=== PATIENT | female | born 1965 | race Caucasian/White ===

== ENCOUNTER → 2017-12-03 09:44 | Outpatient (CLI) | payer BC, SELFPAY ==
[2017-12-03 10:22] VITALS: BMI 21.8
--- NOTE | 2017-12-03 10:25 | CT_ITS ---
CT chest w con Ordering Physician: Aubrey Lugo MD Patient Age: 52 years: Female HISTORY: ITS.REASON: SUPRACLAVICULAR LYMPHADENOPATHY TECHNIQUE: Helical CT scanning performed the chest only 35 cc Isovue-370. Sagittal and coronal reconstructions on CT workstation. COMPARISON :No prior chest studies FINDINGS The lungs appear well expanded and clear with no active disease. No pneumothorax no pleural effusion no pneumonia... Scant, mild chronic apical pleural parenchymal scarring, . Small 3.5 mm mm partially calcified granuloma seen toward posterior right apex (axial slice 25 sagittal 23.). Not of concern . Small nonspecific nodular density axial slice 54, posterior RUL. This measures 4.2 mm maximally. Can be followed.. Aorta & great vessels satisfactory. There is some streak and motion artifact slightly degrades images through this region. Mediastinum. No mediastinal masses. I would note Upper normal density at the anterior mediastinum which is appearance of scant residual thymic tissue but this would be unusual for 52-year-old. It does not have masslike appearance to raise concern regarding pathological feature. Will benefit from 9-12 month follow-up along used to address the small lung nodule. A small 9 mm lymph node at AP window, just anterior to the left pulmonary artery Observed. Chest wall and T-spine unremarkable. Small Hiatal hernia incidentally moderate gas within the esophagus Small to moderate axillary lymph nodes. No supraclavicular adenopathy evident. Thyroid nodules noted: Right lobe thyroid slightly enlarged measuring ~5 cm length,. 8 mm nodule is seen inferior right lower lobe junction with isthmus.. Just superior to this is a 6 mm height nodule mid right lobe. Questionable 4 mm nodule question mid isthmus more anteriorly. Consider follow-up thyroid ultrasound Upper abdomen. Adrenals normal. ---IMPRESSION:-------- 1. A lungs clear with no active disease.. 2. Small nonspecific 4 mm nodule posterior RLL. Question scant low-density residual thymus at superior aspect anterior mediastinum.-this would be unusual for this age patient Consider follow-up CT chest 9-10 months. This I believe Would be adequate follow-up both of these above most likely benign-appearing features 3. No supraclavicular adenopathy or mass No significant appearing mediastinal adenopathy otherwise 4. Incidental thyroid nodules with slight Enlarged right lobe of thyroid. Consider thyroid ultrasound
[2017-12-03 10:47] LABS: Basophils # 0.1 K/mm3 (0-0.2); Basophils % 0.9 % (0.1-2.0); Eosinophils # 0.2 K/mm3 (0.0-0.4); Eosinophils % 2.5 % (0.1-12.0); Hematocrit 43.6 % (37.0-47.0); Hemoglobin 14.8 g/dL (12.2-16.2); Lymphocytes # 2.9 K/mm3 (0.7-4.5); Lymphocytes % 31.8 K/mm3 (10-50); Mean Corpuscular Hemoglobin 29.9 pg (27.0-31.2); Mean Corpuscular Volume 88.1 fl (81-99); Mean Platelet Volume 7.5 fl (7.4-10.4); Monocytes # 0.5 K/mm3 (0.1-1.0); Monocytes % 5.2 % (1.7-9.3); Neutrophils # 5.5 K/mm3 (1.8-7.8); Neutrophils % 59.6 % (37.0-80.0); Platelet Count 337 K/mm3 (142-424); Red Blood Count 4.95 M/mm3 (4.20-5.40); White Blood Count 9.2 K/mm3 (4.8-10.8)
[2017-12-03 11:14] LABS: Alanine Aminotransferase 21 U/L (12-78); Albumin Level 3.6 gm/dL (3.4-5.0); Albumin/Globulin Ratio 0.9 (1.1-1.8); Alkaline Phosphatase 140 U/L (46-116); Anion Gap 11.3 mEq/L (5-15); Aspartate Amino Transferase 13 U/L (15-37); Bilirubin,Total 0.3 mg/dL (0.2-1.0); Blood Urea Nitrogen 7 mg/dL (7-18); Carbon Dioxide 28 mmol/L (21.0-32.0); Chloride 107 mmol/L (98-107); Creatinine Clearance Estimated 99 mL/min (0-300); Creatinine,Serum 0.62 mg/dL (0.55-1.02); Estimated Glomerular Filt Rate 102 ml/min (>60); GFR (African American) 123 ML/MIN (>60); Globulin 4.2 gm/dl (1.3-3.2); Glucose 92 mg/dL (74-106); Potassium 4.3 mmoL/L (3.5-5.1); Sodium 142 mmol/L (136-145); Thyroid Stimulating Hormone 1.74 uIU/ml (0.358-3.740); Total Protein,Serum 7.8 gm/dL (6.4-8.2)
[2017-12-07 10:52] LABS: Vitamin B12 584 pg/mL (232-1245)
== END ==
PROVIDERS: Family Provider Internal Medicine; PCP Internal Medicine Adolescent Medicine; Visit Provider Internal Medicine Adolescent Medicine
DX: R59.0 Localized enlarged lymph nodes (principal)
CPT/HCPCS: 71260; 80053; 82607; 84443; 85025; Q9967

== ENCOUNTER → 2017-12-20 12:32 | Outpatient (CLI) | payer BC, SELFPAY ==
--- NOTE | 2017-12-20 12:37 | US_ITS ---
US thyroid HISTORY: ITS.REASON: THYROID NODULE ORDERING PHYSICIAN: Stacy Chatman PATIENT AGE: 52 years COMPARISON: None FINDINGS: Right lobe: The right lobe is 4.8 x 0.9 x 2.5 cm. 5 mm multilocular cystic lesion in the mid aspect of the right lobe. 4 mm cystic lesion in the mid aspect of the right lobe 4 mm additional cyst mid right lobe 9 mm hypoechoic nodule lower pole on the right. 7 x 7 mm hypoechoic locular lesion in the lower pole on the right corresponding to the abnormality noted on the CT scan Left lobe: 4.3 x 1.1 x 1.5 cm 3 mm hypoechoic nodules. Early. 3 mm hypoechoic nodule inferiorly. Isthmus: Mildly thickened at 4 mm. There is a 4 mm cystic nodule at the junction of the isthmus with the right lobe IMPRESSION: Mildly enlarged thyroid gland with multiple nodules most of which appear cystic. 7 mm hypoechoic nodule in the lower pole on the right corresponds to the CT abnormality. The nodule several low level of suspicion for malignancy. 6 month follow-up recommended.
== END ==
PROVIDERS: Family Provider Internal Medicine; PCP Nurse Practitioner Family; Visit Provider Nurse Practitioner Family
DX: E04.2 Nontoxic multinodular goiter (principal)
CPT/HCPCS: 76536

== ENCOUNTER → 2017-12-27 15:15 | Outpatient (CLI) | payer BC, SELFPAY ==
--- NOTE | 2017-12-27 15:20 | MM_ITS ---
MM Dig screening mamm BI w/CAD CAD Screening COMPARISON: Digital mammograms from [facility] 02/09/2014 and digital mammograms from [facility] 12/19/2011 . INDICATION: There is a history of breast cancer in patient's sister maternal aunt and maternal uncle all diagnosed in their 30s and 40s TECHNIQUE: Standard CC and MLO images were obtained. R2 CAD reviewed. FINDINGS: Prominent diffuse heterogenic fiber glandular densities are seen in both breasts definitely lessening the sensitivity of mammography. There is no suspicious lesion and there are no suspicious microcalcifications. IMPRESSION: Dense parenchymal pattern with no suspicious lesion seen BI-RADS Category: 1 Negative RECOMMENDED FOLLOW-UP: 1YR - 1 YEAR FOLLOW-UP (A letter has been sent to the patient regarding results of the study.)
--- NOTE | 2017-12-27 15:20 | US_ITS ---
US extremity RT limited CLINICAL INDICATION: ITS.REASON: enlarged lymph node ORDERING PHYSICIAN: Yash Rodriguez MD PATIENT AGE: 52 years COMPARISON: None FINDINGS: Ultrasound is performed of the right axilla. There are small lymph nodes present measuring up to 1.5 cm x 0.7 cm. Heterogeneous echogenicity having a lace like pattern is present in the right axilla measuring 5 cm and may be due to a lipoma. No abnormal fluid collection or other significant anomalies evident IMPRESSION: Probable lipoma right axilla with small lymph nodes
--- NOTE | 2017-12-27 15:20 | US_ITS ---
US extremity LT limited CLINICAL INDICATION: Swelling in the left axilla ITS.REASON: enlarged lymph node ORDERING PHYSICIAN: Yash Rodriguez MD PATIENT AGE: 52 years COMPARISON: None FINDINGS: Ultrasound performed of the left axilla showed small nodes measuring up to 2 x 1 cm. And oval area of lace like decreased echogenicity noted in the axillary region measuring 4.6 x 2 cm and may be due to a lipoma. No fluid collections evident. IMPRESSION: Small left axillary lymph nodes with possible lipoma
== END ==
PROVIDERS: Family Provider Internal Medicine; PCP Nurse Practitioner Family; Visit Provider Surgery
DX: R59.1 Generalized enlarged lymph nodes (principal)
CPT/HCPCS: 76882; 77067

== ENCOUNTER → 2018-10-22 15:03 | Outpatient (CLI) | payer OTHER, SELFPAY ==
--- NOTE | 2018-10-22 15:08 | US_ITS ---
US thyroid HISTORY: Thyroid nodules, feels like something is stuck in the throat ITS.REASON: THYROID NODULE ORDERING PHYSICIAN: Jd Resendez MD PATIENT AGE: 53 years Comparison: 12/20/2017 FINDINGS: Right lobe: 4.6 x 1.5 x 1.6 cm Nodule A: 5 mm hypoechoic nodule with pole laterally unchanged Nodule B: 3 mm cystic lesion mid polar region unchanged. Small central hyperechoic focus Nodule C: 4 mm cystic nodule mid polar region unchanged. Small central hyperechoic focus Nodule D: 4 mm cystic nodule lower pole with small hyperechoic focus peripherally Left lobe: 4.3 x 1.1 x 1.4 cm Nodule A: 2 mm cystic nodule upper pole unchanged Nodule B: 3 mm hypoechoic nodule lower pole unchanged Isthmus: 5 mm hypoechoic nodule lateral isthmus unchanged IMPRESSION: Bilateral stable thyroid nodules with low level of suspicion for malignancy. Overall no significant change
== END ==
PROVIDERS: PCP Internal Medicine Adolescent Medicine; Visit Provider Internal Medicine Adolescent Medicine
DX: E04.1 Nontoxic single thyroid nodule (principal)
CPT/HCPCS: 76536

== ENCOUNTER → 2019-08-25 08:05 | Outpatient (CLI) | payer BC, SELFPAY ==
[2019-08-25 08:50] LABS: Basophils # 0.1 K/mm3 (0-0.2); Basophils % 0.8 % (0.1-2.0); Eosinophils # 0.2 K/mm3 (0.0-0.4); Eosinophils % 2.6 % (0.1-12.0); Hemoglobin 15.3 g/dL (12.2-16.2); Lymphocytes # 2.6 K/mm3 (0.7-4.5); Mean Corpuscular HGB Conc 33.3 g/dL (31.8-35.4); Mean Corpuscular Hemoglobin 29.8 pg (27.0-31.2); Mean Corpuscular Volume 89.5 fl (81-99); Monocytes # 0.5 K/mm3 (0.1-1.0); Monocytes % 5.5 % (1.7-9.3); Neutrophils # 5.2 K/mm3 (1.8-7.8); Platelet Count 312 K/mm3 (142-424); Red Blood Count 5.14 M/mm3 (4.20-5.40); White Blood Count 8.5 K/mm3 (4.8-10.8)
[2019-08-25 10:03] LABS: Alanine Aminotransferase 18 U/L (12-78); Albumin Level 3.8 gm/dL (3.4-5.0); Albumin/Globulin Ratio 1.2 (1.1-1.8); Alkaline Phosphatase 127 U/L (46-116); Anion Gap 14.4 mEq/L (5-15); Aspartate Amino Transferase 14 U/L (15-37); Bilirubin,Total 0.4 mg/dL (0.2-1.0); Blood Urea Nitrogen 12 mg/dL (7-18); C-Reactive Protein < 0.2 mg/dL (0.0-0.9); Calcium 9.2 mg/dL (8.5-10.1); Carbon Dioxide 28 mmol/L (21.0-32.0); Chloride 104 mmol/L (98-107); Chol/HDL Ratio 9.5 (1-3.5); Cholesterol 237 mg/dL (140-200); Estimated Glomerular Filt Rate 88 ml/min (>60); GFR (African American) 106 ML/MIN (>60); Globulin 3.3 gm/dl (1.3-3.2); Glucose 91 mg/dL (74-106); HDL Cholesterol 25 mg/dL (29-89); LDL Cholesterol 138 mg/dL (0-130); Potassium 4.4 mmoL/L (3.5-5.1); Sodium 142 mmol/L (136-145); Thyroid Stimulating Hormone 1.81 uIU/ml (0.358-3.740); Total Protein,Serum 7.1 gm/dL (6.4-8.2); Triglycerides 372 mg/dL (30-200); Uric Acid 2.9 mg/dL (2.6-7.2); VLDL Cholesterol 74 mg/dL (0-40)
[2019-08-25 10:09] LABS: Erythrocyte Sedimentation Rate 11 mm/hr (0-30)
[2019-08-26 08:13] LABS: RA Latex Turbid. <10.0 IU/mL (0.0-13.9)
[2019-08-27 08:20] LABS: Hepatitis C Antibody 0.1 s/co ratio (0.0-0.9)
[2019-08-27 08:21] LABS: Anti-Cyclic Citrullinated Pept 16 units (0-19); Vitamin D 25 Hydroxy 23.5 ng/mL (30.0-100.0)
== END ==
PROVIDERS: Visit Provider Nurse Practitioner Family
DX: M25.50 Pain in unspecified joint (principal); E55.9 Vitamin D deficiency, unspecified; E78.2 Mixed hyperlipidemia; E04.1 Nontoxic single thyroid nodule; Z72.0 Tobacco use
CPT/HCPCS: 36415; 80053; 80061; 82652; 84443; 84550; 85025; 85651; 86140; 86200; 86431; 87380

== ENCOUNTER → 2019-09-04 07:43 | Outpatient (CLI) | payer BC, SELFPAY ==
--- NOTE | 2019-09-04 07:50 | US_ITS ---
PROCEDURE: US THYROID CLINICAL INDICATION: THYROID NODULE Follow-up thyroid nodules COMPARISON: THY US thyroid from 10/22/2018 FINDINGS: Right lobe: The right lobe measures 4.6 x 1.4 x 1.6 cm. Multiple cystic nodules are present on the right and are unchanged with low level of suspicion for malignancy. No suspicious solid nodules are demonstrated on today's exam. Left lobe: 4.3 x 1.6 x 1.1 cm. No change in the hypoechoic nodule measuring 4 mm in the lower pole and a small cystic lesion in the upper pole at 2 mm. Isthmus: 5 mm hypoechoic nodule lateral aspect of the isthmus on the right unchanged Additional findings: IMPRESSION: Stable ultrasound appearance of the thyroid gland. Stable small bilateral nodules with low level of suspicion for malignancy Dictated by: Colin Foster MD 09/04/2019 15:32 Electronically signed by Colin Foster MD in [place] 09/04/2019 15:32
--- NOTE | 2019-09-04 07:50 | MM_ITS ---
PROCEDURE: MM DIG SCREENING MAMM BI W/CAD Patient Age:54Y CLINICAL INDICATION: SCREENING period. Fragments 6 months ago. No new complaints. Family history: Sister with breast cancer age 32 Maternal aunt breast cancer age 38. Maternal uncle age 40 COMPARISON: DIGMAMMS MAMMOGRAM SCREEN-PORCELAIN ENAMELER N/C from 09/20/2005 [facility] DIGITAL MAMM-SCREEN BILATERAL from 12/19/2011 DIG MAMMO BILAT SCREENING from 02/09/2014 [facility] MM Dig screening mamm BI w/CAD from 12/27/2017 TECHNIQUE: The standard CC and MLO images were obtained. R2 CAD reviewed. Additional axillary CC views bilateral. FINDINGS: Moderate breast density bilaterally with fibroglandular elements most evident at the retroareolar region extending towards upper-outer quadrant bilaterally, similar to previous pattern but no suspicious calcifications the right mammogram Focal density at the superior right breast on today's MLO view of is noted but most likely a reflect summation shadow as it seems to dissipate on the CC views-however with this appearance I would suggest spot MLO and CC view along with a full 90 degree view right breast. Ultrasound right breast thereafter Left breast: Stable appearance with no significant new findings. IMPRESSION: Right breast: Suggest additional views and ultrasound right breast A focal area of density on today's MLO view is most likely merely summation shadow-but to be cautious, and in view of the positive family history, I would suggest patient return for spot views and ultrasound right breast to further evaluate Left mammogram. No significant change; left mammogram follow-up in 1 year BI-RAD Category: 0 Need Additional Imaging Evaluation FOLLOW-UP: IMM Immediate Follow-up Recommended (A letter has been sent to the patient regarding results of the study.) Dictated by: Laci Isabel MD 09/06/2019 11:08 Electronically signed by Laci Isabel MD in [place] 09/06/2019 11:08
== END ==
PROVIDERS: PCP Internal Medicine Adolescent Medicine; Visit Provider Nurse Practitioner Family
DX: Z12.31 Encounter for screening mammogram for malignant neoplasm of breast (principal); E04.1 Nontoxic single thyroid nodule
CPT/HCPCS: 76536; 77067

== ENCOUNTER → 2019-10-20 12:48 | Outpatient (CLI) | payer BC, SELFPAY ==
--- NOTE | 2019-10-20 12:53 | MM_ITS ---
PROCEDURE: MM DIG MAMM DX UNILAT RT CAD CLINICAL INDICATION: ABNORMAL MAMM Follow-up abnormal screening exam COMPARISON: DIGMAMMS MAMMOGRAM SCREEN-AGRICULTURAL LABOR CAMP MANAGER N/C from 09/20/2005 [facility] DIGITAL MAMM-SCREEN BILATERAL from 12/19/2011 DIG MAMMO BILAT SCREENING from 02/09/2014 [facility] MM Dig screening mamm BI w/CAD from 12/27/2017 MM DIG SCREENING MAMM BI W/CAD from 09/04/2019 US BREAST RT COMPLETE from 10/20/2019 TECHNIQUE: Problem solving views are performed along with right breast ultrasound. FINDINGS: There is average fibroglandular tissue. The area of asymmetric density in the superior aspect of the right breast appears to compress out on the focal spot compression view. No correlate evident on the orthogonal images. Right breast ultrasound: There is a 4 mm cyst at 1 o'clock near the nipple. At 10 o'clock there is a 5 mm hypoechoic nodule which may be due to a cyst containing some low level echoes which could be due to internal debris or reverberation artifact. This may the correspond to the mammographic abnormality. A 5 mm cyst is present in the retroareolar region. No malignant appearing nodules evident. IMPRESSION: Probably benign findings. The area of asymmetry may correspond to either asymmetric fibroglandular tissue or small complex cyst. Recommend six-month mammographic and sonographic follow-up BI-RAD Category: 3 Probably Benign Finding Short Term Follow-up FOLLOW-UP: 6M 6Month Follow-up (A letter has been sent to the patient regarding results of the study.) Dictated by: Colin Foster MD 10/23/2019 11:47 Electronically signed by Colin Foster MD in [place] 10/23/2019 11:47
== END ==
PROVIDERS: PCP Internal Medicine Adolescent Medicine; Visit Provider Nurse Practitioner Family
DX: R92.8 Other abnormal and inconclusive findings on diagnostic imaging of breast (principal)
CPT/HCPCS: 76641; 77065

== ENCOUNTER → 2020-07-30 15:41 | Outpatient (CLI) | payer BC, SELFPAY | PROVIDERS: PCP Internal Medicine Adolescent Medicine; Visit Provider Nurse Practitioner Family | DX: R00.2 Palpitations (principal) | CPT/HCPCS: 93225; 93226 ==

== ENCOUNTER → 2020-08-27 12:47 | Outpatient (CLI) | payer BC, SELFPAY ==
--- NOTE | 2020-08-27 | CA_ITS ---
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 Philip, RT(R) Ht: 5 ft 4 in Wt: 130lbs BSA: 1.63 BP: 160/90 mmHg Indications: CP, MVP, palpitations, smoker, murmur, family history of HD 2D Dimensions LVOT 1.54 cm (M/F) 1.5-2.5 M-Mode Dimensions RVDd 1.88 cm (0.9-2.6) LA Diam 2.65 cm (1.9-4.0) LVDd 4.52 cm (3.5-5.7) Ao Diam 3.03 cm (2.0-3.7) LVDs 3.22 cm (3.5-5.7) IVSd 0.61 cm (0.6-1.1) PWd 0.55 cm (0.6-1.1) EF (Teich) 55.50% FS 28.80% EDV (Teich) 93.40 mL ESV (Teich) 41.60 mL LV Diastology E Decel Time 150.00 (160-240 msec) E/A Ratio 1.0 MED E' 9.70 (< 7 cm/sec) E'/MED E' Ratio 11.84 (>14) LAT E' 10.80 (<10 cm/sec) E/LAT E' Ratio 10.63 (>14) Mitral Valve MV E Max Jeremías. 115.00 (40-130 cm/s) MV A Velocity 110.00 (40-130 cm/s) E/A Ratio 1.04 MV Decel. Time 150.00 (160-240 ms) MV PHT 44.00 ms Left Ventricle Left atrium is normal size, left ventricle is normal size, there is no concentric left ventricular hypertrophy, visually estimated ejection fraction 55% with no regional wall motion abnormality, diastolic parameters are within normal range. Right Ventricle Right atrium and right ventricle are normal size and contractility. Aortic Valve Aortic valve is minimally thickened and fibrosed, there is no aortic stenosis or aortic insufficiency. Mitral Valve Mitral valve leaflets are minimally thickened, there is no obvious mitral valve prolapse, there is mild mitral regurgitation. Tricuspid Valve Tricuspid valve is grossly normal, there is mild tricuspid regurgitation, tricuspid regurgitation jet velocity is inadequate for calculation of the right ventricular systolic pressure. Pulmonic Valve Pulmonic valve is poorly visualized. Great Vessels Aortic root is normal size. Pericardium No significant pericardial effusion noted. Conclusion 1. Normal left ventricular size, preserved left ventricular systolic function, visually estimated ejection fraction 55% with no regional wall motion abnormality, diastolic parameters are within normal range. 2. No obvious mitral valve prolapse seen. 3. Mild mitral and tricuspid regurgitation. 4. No significant pericardial effusion noted. Electronically signed by : Ean Franklin, 08/30/2020 19:10:22
== END ==
PROVIDERS: PCP Internal Medicine Adolescent Medicine; Visit Provider Nurse Practitioner Family
DX: I34.1 Nonrheumatic mitral (valve) prolapse (principal)
CPT/HCPCS: 93306

== ENCOUNTER 2020-09-03 23:29 | Emergency (ER) | payer BC, SELFPAY ==
[2020-09-03 23:41] VITALS: BP 117/85; PULSE 95; RESP 18; TEMP 36.7; O2SAT 99; BMI 22.3
[2020-09-03 23:58] LABS: Microscopic, Urine URINE MICROSCOPIC (MICROSCOPIC)
[2020-09-04 00:05] LABS: Appearance,Urine CLEAR (Clear); Bilirubin,Urine Negative (Negative); Blood, Urine 1+ (Negative); Color,Urine YELLOW (Yellow); Glucose,Urine (UA) Negative (Negative); Ketones,Urine Negative (Negative); Leukocyte Esterase,Urine Negative (Negative); Nitrate,Urine Negative (Negative); Protein,Urine Negative (Negative); Specific Gravity, Urine 1.025 (1.005-1.030); Urobilinogen,Urine 0.2 EU/dl (0.2)
[2020-09-04 00:06] LABS: Squamous Epithelial Cell,Urine Occasional #/hpf (0-5)
[2020-09-04 00:15] LABS: Basophils # 0.1 K/mm3 (0-0.2); Basophils % 1.1 % (0.1-2.0); Eosinophils # 0.4 K/mm3 (0.0-0.4); Eosinophils % 3.6 % (0.1-12.0); Hematocrit 45.9 % (37.0-47.0); Hemoglobin 15.6 g/dL (12.2-16.2); Lymphocytes # 3.9 K/mm3 (0.7-4.5); Lymphocytes % 35.7 % (10-50); Mean Corpuscular HGB Conc 34.1 g/dL (31.8-35.4); Mean Corpuscular Volume 88.2 fl (81-99); Mean Platelet Volume 7.5 fl (7.4-10.4); Monocytes # 0.7 K/mm3 (0.1-1.0); Monocytes % 6.4 % (1.7-9.3); Neutrophils # 5.8 K/mm3 (1.8-7.8); Neutrophils % 53.2 % (37.0-80.0); Platelet Count 317 K/mm3 (142-424); Red Cell Distribution Width 13.9 % (11.5-17.5); White Blood Count 10.9 K/mm3 (4.8-10.8)
[2020-09-04 00:21] VITALS: BP 131/86; PULSE 78; RESP 18; O2SAT 100
[2020-09-04 00:24] LABS: Alanine Aminotransferase 16 U/L (12-78); Albumin Level 4.2 g/dl (3.5-5.0); Albumin/Globulin Ratio 1.4 (1.1-1.8); Alkaline Phosphatase 158 U/L (38-126); Amylase 64 U/L (30-110); Anion Gap 11.7 mEq/L (5-15); Aspartate Amino Transferase 29 U/L (14-36); Bilirubin,Total 0.5 mg/dl (0.2-1.3); Blood Urea Nitrogen 11 mg/dl (7-17); Calcium 9.4 mg/dl (8.4-10.2); Carbon Dioxide 26 mmol/L (22.0-30.0); Chloride 106 mmol/L (98-107); Creatinine Clearance Estimated 87 mL/min (50-200); Estimated Glomerular Filt Rate 88 ml/min (>60); GFR (African American) 106 ML/MIN (>60); Globulin 3.1 g/dL (1.3-3.2); Glucose 108 mg/dl (74-100); Lipase 183 U/L (23-300); Potassium 3.7 mmoL/L (3.5-5.1); Sodium 140 mmol/L (136-145); Total Protein,Serum 7.3 g/dl (6.3-8.2)
[2020-09-04 00:25] LABS: Lactic Acid 1.2 mmol/L (0.7-2.1)
--- NOTE | 2020-09-04 00:26 | PC.NURSE ---
Pt finished oral contrast
--- NOTE | 2020-09-04 00:36 | HMH.EDNVD ---
ED Disposition Clinical Impression: Renal colic on left side Disposition: Home, Self-Care Condition on Discharge: Good Instructions: DI for Kidney Stones Additional Instructions: fluids and see pcp and urology Prescriptions: Tamsulosin HCl [Flomax 0.4mg capsule] 0.4 mg PO HS #10 cap Transmission Status: Pending to [facility]/pharmacy #[id number] Referrals: Aubrey Lugo MD [Primary Care Provider] - - Critical Care Critical Care Time: No Attestation: On 09/03/20, the high probability of a clinically significant, sudden or life threatening deterioration of the following system(s) required my full and direct attention, intervention and personal management. The time I documented below is in addition to time spent performing reported procedures but includes the following listed in this critical care notation. Medical Decision Making - Medical Records Medical records reviewed: Yes: I reviewed the patient's medical records. - Teto Inquiry Pt receiving controlled substance: No Vital Signs: 09/03/20 23:41 09/04/20 00:21 Temperature 98.1 F Temperature Source Oral Pulse Rate [Right] 95 H 78 Respiratory Rate 18 18 Blood Pressure [Right Arm] 117/85 131/86 Blood Pressure Mean [Right Arm] 95 101 Blood Pressure Source [Right Arm] Automatic Cuff Blood Pressure Position [Right Arm] Supine 02 Sat by Pulse Oximetry 99 100 Oxygen Delivery Method Room Air Room Air - Lab Data Lab results reviewed: Yes: I reviewed the patient's lab results. Lab Results 09/03/20 23:50: Urine Color Yellow, Urine Appearance Clear, Urine pH 6.0, Ur Specific Ovando 1.025, Urine Protein Negative, Urine Glucose (UA) Negative, Urine Ketones Negative, Urine Blood 1+, Urine Nitrate Negative, Urine Bilirubin Negative, Urine Urobilinogen 0.2, Ur Leukocyte Esterase Negative, Urine RBC 5-10, Ur Squamous Epith Cells Occasional 09/04/20 00:06: WBC 10.9 H, RBC 5.20, Hgb 15.6, Hct 45.9, MCV 88.2, MCH 30.0, MCHC 34.1, RDW 13.9, Plt Count 317, MPV 7.5, Neut % (Auto) 53.2, Lymph % (Auto) 35.7, Zapata % (Auto) 6.4, Eos % (Auto) 3.6, Baso % (Auto) 1.1, Neut # (Auto) 5.8, Lymph # (Auto) 3.9, Zapata # (Auto) 0.7, Eos # (Auto) 0.4, Baso # (Auto) 0.1, ESR 16 09/04/20 00:06: Sodium 140, Potassium 3.7, Chloride 106, Carbon Dioxide 26, Anion Gap 11.7, BUN 11, Creatinine 0.70, Estimated Creat Clear 87, Estimated GFR 88, Est GFR ( Amer) 106, Glucose 108 H, Calcium 9.4, Total Bilirubin 0.5, AST 29, ALT 16, Alkaline Phosphatase 158 H, C-Reactive Protein 2.0, Total Protein 7.3, Albumin 4.2, Globulin 3.1, Albumin/Globulin Ratio 1.4, Amylase 64, Lipase 183 09/04/20 00:06: Lactate 1.2 Result diagrams: 09/04/20 00:06 09/04/20 00:06 Orders (Tests/Meds): ED MEDICATIONS Generic Name Dose Route Start Last Admin Trade Name Freq PRN Reason Stop Dose Admin Sodium Chloride 1,000 mls @ 999 mls/hr 09/03/20 23:45 09/04/20 00:06 Sod Chlor 0.9% 1000ml Bag IV 09/04/20 00:45 999 mls/hr .Q1H1M TORSTEN Administration Discontinued Medications Generic Name Dose Route Start Last Admin Trade Name Freq PRN Reason Stop Dose Admin Diatrizoate Meglum/Diatrizoate Sod 30 ml 09/03/20 23:51 09/04/20 00:06 Diatrizoate Gemma 66% & Diatrizoate Na 10% 30ml Udc PO 09/03/20 23:52 30 ml ONCE ONE Administration Iopamidol 50 ml 09/04/20 02:10 09/04/20 02:11 Iopamidol-370 (76%); 50ml Vial IV 09/04/20 02:11 50 ml ONCE ONE Administration Iopamidol 25 ml 09/04/20 02:10 09/04/20 02:11 Iopamidol-370 (76%); 50ml Vial IV 09/04/20 02:11 25 ml ONCE ONE Administration Ketorolac Tromethamine 30 mg 09/03/20 23:51 09/04/20 00:06 Ketorolac 30mg/Ml Vial IV 09/03/20 23:52 30 mg ONCE ONE Administration Ondansetron HCl 4 mg 09/03/20 23:51 09/04/20 00:06 Ondansetron 4mg/2ml Vial IV 09/03/20 23:52 4 mg ONCE ONE Administration Sodium Chloride 10 ml 09/04/20 02:12 09/04/20 02:12 Sodium Chloride 0.9% 10ml Syr (Rad Only) IV 09/04/20 02:13 10 ml
[2020-09-04 00:38] LABS: Erythrocyte Sedimentation Rate 16 mm/hr (0-30)
--- NOTE | 2020-09-04 01:44 | CT_ITS ---
PROCEDURE: CT ABDOMEN PELVIS W CON CLINICAL INDICATION: LLQ pain Left lower quadrant pain COMPARISON: CT ABDPELW/O CT ABD PELVIS W/O CONTRAST from 06/09/2015 TECHNIQUE: IV Contrast: 75ML OPTIRAY 350 Oral Contrast None Axial images obtained with sagittal and coronal reformats. All CT scans at the facility use one or more dose reduction, viz: automated exposure control, ma/kV adjustment per patient size (including targeted exams where dose is matched to indication, i.e. head), or iterative reconstruction technique. FINDINGS: The liver, spleen, adrenal glands, pancreas, have an unremarkable appearance. There is a small hiatal hernia. There are punctate left renal calculi. There is a the 4 mm stone at the ureterovesical junction on the left with mild left-sided hydroureteronephrosis. Unremarkable appendix. No intestinal obstruction or free air. There are few colonic diverticula without evidence of diverticulitis. No acute bony findings. IMPRESSION: 1. 4 mm left ureterovesical junction stone with mild left hydroureteronephrosis. 2. Other nonacute findings as described above Dictated by: Colin Foster MD 09/04/2020 09:27 Colin Foster MD in [place] 09/04/2020 09:27
[2020-09-04 03:51] VITALS: BP 128/72; PULSE 76; RESP 16; TEMP 36.7; O2SAT 99
== END 2020-09-04 03:53 | disposition home or self-care (01) ==
PROVIDERS: Emergency Provider Emergency Medicine; PCP Internal Medicine Adolescent Medicine
DX: N23 Unspecified renal colic (principal); K21.9 Gastro-esophageal reflux disease without esophagitis; I10 Essential (primary) hypertension; F17.210 Nicotine dependence, cigarettes, uncomplicated
CPT/HCPCS: 74177; 80053; 81001; 82150; 83605; 83690; 85025; 85651; 86140; 87040; 96365; 96375; 99284; J2405; Q9967

== ENCOUNTER → 2020-10-19 09:27 | Outpatient (CLI) | payer BC, SELFPAY ==
--- NOTE | 2020-10-19 09:30 | US_ITS ---
PROCEDURE: US THYROID CLINICAL INDICATION: THYROID NODULE 1 year follow up nodules Nodules still seen COMPARISON: US US THYROID from 09/04/2019 FINDINGS: Right lobe: 1.0cm x 4.6cm x 1.7cm . Left lobe: 1.0cm x 4.1cm x 1.8cm Isthmus: 3 mm There are multiple benign-appearing cysts of the thyroid gland on both sides. These are not significantly changed. No suspicious nodules are evident IMPRESSION: Multiple bilateral thyroid cysts unchanged Dictated by: Colin Foster MD 10/20/2020 18:02 Colin Foster MD in [place] 10/20/2020 18:02
--- NOTE | 2020-10-19 09:30 | CT_ITS ---
PROCEDURE: CT CHEST W CON CLINCAL INDICATION: Lung nodule follow-up lung nodule COMPARISON: CT CHESTW CT chest w con from 12/03/[address] ABDOMEN PELVIS W CON from 09/04/2020 TECHNIQUE: IV Contrast: 75ml Isovue 370 Axial images obtained with sagittal and coronal reformats. All CT scans at the facility use one or more dose reduction, viz: automated exposure control, ma/kV adjustment per patient size (including targeted exams where dose is matched to indication, i.e. head), or iterative reconstruction technique. FINDINGS: HEART AND MEDIASTINAL STRUCTURES: Increased density within the anterior mediastinum which may be related to residual thymic tissue. LUNGS AND PLEURAL SPACES: There is a 4 mm noncalcified nodule in the superior segment of the right lower lobe which is unchanged. No new nodules are evident. BONY STRUCTURES: No acute bony abnormalities apparent. UPPER ABDOMEN: There is a small hiatal hernia. 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 ADDITIONAL FINDINGS: No other significant abnormalities. IMPRESSION: No change in the 4 mm noncalcified nodule in the superior segment of the right lower lobe. Small hiatal hernia. 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 angiogram of the abdomen may be of further value if clinically desired. Dictated by: Colin Foster MD 10/20/2020 13:59 Colin Foster MD in [place] 10/20/2020 13:59
--- NOTE | 2020-10-19 09:31 | MM_ITS ---
PROCEDURE: MM DIG SCREENING MAMM BI W/CAD Digital Breast Tomosynthesis Included CLINICAL INDICATION: SCREENING There is a history of breast cancer patient's sister diagnosed 32 maternal aunt COMPARISON: [facility] MM Dig screening mamm BI w/CAD from 12/27/2017 MG MM DIG SCREENING MAMM BI W/CAD from 09/04/2019 MG MM DIG MAMM DX UNILAT RT CAD from 10/20/2019 TECHNIQUE: Standard CC and MLO images and 3D Tomosynthesis was obtained. R2 CAD reviewed. FINDINGS: Diffuse fibroglandular densities are seen in both breast primarily upper outer quadrants. The findings are fairly symmetrical bilaterally. Is no suspicious lesion in either breast no suspicious microcalcifications. IMPRESSION: Moderate diffuse breast density with no suspicious lesions seen BI-RAD Category: 1 Negative FOLLOW-UP: 1YR 1 Year Follow-up (A letter has been sent to the patient regarding results of the study.) Dictated by: Dr. Gordy Kirkland MD 10/20/2020 14:20 Dr. Gordy Kirkland MD in [place] 10/20/2020 14:20
== END ==
PROVIDERS: PCP Internal Medicine Adolescent Medicine; Visit Provider Nurse Practitioner Family
DX: Z12.31 Encounter for screening mammogram for malignant neoplasm of breast (principal); R91.1 Solitary pulmonary nodule; E04.1 Nontoxic single thyroid nodule
CPT/HCPCS: 71260; 76536; 77063; 77067; Q9967

== ENCOUNTER 2020-11-03 14:00 | Outpatient (RCR) | payer BC, SELFPAY ==
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
== END 2020-11-22 14:19 | disposition home or self-care (01) ==
LOC: PT.CARL 14:00
PROVIDERS: Visit Provider Nurse Practitioner Family
DX: M54.32 Sciatica, left side (principal)
CPT/HCPCS: 97010; 97014; 97110; 97163; G0283

== ENCOUNTER → 2020-11-15 10:14 | Outpatient (CLI) | payer BC, SELFPAY ==
--- NOTE | 2020-11-15 10:19 | CT_ITS ---
Procedure: CT ANGIO ABDOMEN CLINICAL HISTORY: Celiac artery stenosis, abdominal pain COMPARISON: CT CT ABDOMEN PELVIS W CON from 09/04/2020 TECHNIQUE: IV Contrast: 100ml Isovue 370 Axial images obtained with sagittal and coronal reformats. All CT scans at the facility use one or more dose reduction, viz: automated exposure control, ma/kV adjustment per patient size (including targeted exams where dose is matched to indication, i.e. head), or iterative reconstruction technique. FINDINGS: A 4 mm noncalcified nodules present in the right lower lobe medially. This area was not previously imaged. There is a small hiatal hernia. The liver, spleen, adrenal glands, pancreas, have an unremarkable appearance. Punctate nonobstructing stones are present in the left kidney. No hydronephrosis. No intestinal obstruction or free air. Unremarkable appendix. CTA: There are mild atheromatous changes of the abdominal aorta. No aneurysm or occlusive change evident. There is high-grade stenosis involving the ostium of the celiac artery of with poststenotic dilatation. Approximately 66 percent stenosis involves the ostium of the celiac artery. The SMA has an unremarkable appearance. The AWILDA is patent. No evidence of renal artery stenosis. The iliac arteries show no evidence of aneurysm or significant stenosis. 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 Nonobstructing left renal calculi. Indeterminate 4 mm noncalcified nodule right lower lobe. Consider six-month follow-up to confirm short term stability. Dictated by: Colin Foster MD 11/16/2020 14:45 Colin Foster MD in [facility] 11/16/2020 14:45
== END ==
PROVIDERS: PCP Internal Medicine Adolescent Medicine; Visit Provider Nurse Practitioner Family
DX: I77.4 Celiac artery compression syndrome (principal)
CPT/HCPCS: 74175; Q9967

== ENCOUNTER → 2021-03-10 07:42 | Outpatient (CLI) | payer BC, SELFPAY ==
--- NOTE | 2021-03-10 07:47 | US_ITS ---
PROCEDURE: US ABDOMEN LIMITED CLINICAL INDICATION: UPPER ABD PAIN COMPARISON: No exams were available for comparison FINDINGS: PANCREAS: Unremarkable. No obvious mass or abnormal fluid collection. No ductal dilatation LIVER: No focal liver lesions demonstrated. Homogeneous echogenicity. No intrahepatic biliary ductal dilatation evident. There is appropriate direction of blood flow within a non dilated portal vein RIGHT KIDNEY: Cortical thinning. No hydronephrosis. GALLBLADDER: No gallstones, gallbladder wall thickening, pericholecystic fluid, or biliary dilatation. Atheromatous changes are present within the aorta. The spleen has an unremarkable appearance. There is some cortical scarring of both kidneys. IMPRESSION: No acute finding. Mild cortical thinning/scarring of the kidneys and atheromatous changes of the aorta. Dictated by: Colin Foster MD 03/10/2021 17:00 Colin Foster MD in [facility] 03/10/2021 17:00
== END ==
PROVIDERS: PCP Internal Medicine Adolescent Medicine; Visit Provider Internal Medicine Adolescent Medicine
DX: R10.10 Upper abdominal pain, unspecified (principal)
CPT/HCPCS: 76705

== ENCOUNTER → 2021-09-16 18:05 | Outpatient (CLI) | payer BC, SELFPAY ==
[2021-09-16 18:57] LABS: Basophils # 0.1 K/mm3 (0-0.2); Basophils % 1.4 % (0.1-2.0); Eosinophils # 0.2 K/mm3 (0.0-0.4); Eosinophils % 2.6 % (0.1-12.0); Hemoglobin 15.1 g/dL (12.2-16.2); Lymphocytes # 2.5 K/mm3 (0.7-4.5); Lymphocytes % 29.2 % (10-50); Mean Corpuscular HGB Conc 33.6 g/dL (31.8-35.4); Mean Corpuscular Hemoglobin 30.2 pg (27.0-31.2); Mean Corpuscular Volume 89.9 fl (81-99); Mean Platelet Volume 9.2 fl (7.4-10.4); Monocytes # 0.5 K/mm3 (0.1-1.0); Monocytes % 5.6 % (1.7-9.3); Neutrophils # 5.3 K/mm3 (1.8-7.8); Neutrophils % 61.1 % (37.0-80.0); Platelet Count 313 K/mm3 (142-424); Red Blood Count 5.01 M/mm3 (4.20-5.40); Red Cell Distribution Width 13.7 % (11.5-17.5); White Blood Count 8.6 K/mm3 (4.8-10.8)
[2021-09-16 20:10] LABS: Alanine Aminotransferase 13 U/L (12-78); Albumin Level 4.2 g/dl (3.5-5.0); Albumin/Globulin Ratio 1.6 (1.1-1.8); Alkaline Phosphatase 117 U/L (38-126); Anion Gap 6.5 mEq/L (5-15); Aspartate Amino Transferase 31 U/L (14-36); Bilirubin,Total 0.9 mg/dl (0.2-1.3); Blood Urea Nitrogen 7 mg/dl (7-17); Calcium 9.4 mg/dl (8.4-10.2); Carbon Dioxide 31 mmol/L (22.0-30.0); Chloride 106 mmol/L (98-107); Estimated Glomerular Filt Rate 129 ml/min (>60); GFR (African American) 156 ML/MIN (>60); Globulin 2.7 g/dL (1.3-3.2); Glucose 96 mg/dl (74-100); Potassium 4.5 mmoL/L (3.5-5.1); Sodium 139 mmol/L (136-145); Total Protein,Serum 6.9 g/dl (6.3-8.2)
[2021-09-16 20:42] LABS: Thyroid Stimulating Hormone 0.88 uIU/mL (0.465-4.68)
[2021-09-16 21:15] LABS: Vitamin B12 382 pg/mL (239-931)
[2021-09-16 21:58] LABS: 25-OH Vitamin D, Total 50.1 ng/mL (30-100)
== END ==
PROVIDERS: Visit Provider Nurse Practitioner Family
DX: R00.2 Palpitations (principal); R53.83 Other fatigue
CPT/HCPCS: 80053; 82306; 82607; 83735; 84443; 85025

== ENCOUNTER 2022-02-01 13:50 | Emergency (ER) | payer BC, SELFPAY ==
[2022-02-01] VITALS (7 sets, daily range): BP systolic 106–132; BP diastolic 58–75; PULSE 61–82; RESP 16–28; TEMP 36.8; O2SAT 95–99; BMI 20.9
[2022-02-01 14:16] LABS: Microscopic, Urine URINE MICROSCOPIC (MICROSCOPIC)
[2022-02-01 14:19] LABS: Appearance,Urine CLEAR (Clear); Bilirubin,Urine Negative (Negative); Blood, Urine Negative (Negative); Color,Urine YELLOW (Yellow); Glucose,Urine (UA) Negative (Negative); Ketones,Urine Negative (Negative); Leukocyte Esterase,Urine Negative (Negative); Nitrate,Urine Negative (Negative); Protein,Urine Negative (Negative); Specific Gravity, Urine 1.025 (1.005-1.030); Urobilinogen,Urine 0.2 EU/dl (0.2)
[2022-02-01 14:21] LABS: Basophils # 0.1 K/mm3 (0-0.2); Basophils % 1.5 % (0.1-2.0); Eosinophils # 0.2 K/mm3 (0.0-0.4); Eosinophils % 2.1 % (0.1-12.0); Hematocrit 44.8 % (37.0-47.0); Hemoglobin 15.3 g/dL (12.2-16.2); Lymphocytes # 2.2 K/mm3 (0.7-4.5); Lymphocytes % 22.5 % (10-50); Mean Corpuscular HGB Conc 34.1 g/dL (31.8-35.4); Mean Corpuscular Hemoglobin 30.7 pg (27.0-31.2); Mean Corpuscular Volume 89.9 fl (81-99); Mean Platelet Volume 8.7 fl (7.4-10.4); Monocytes # 0.5 K/mm3 (0.1-1.0); Monocytes % 4.8 % (1.7-9.3); Neutrophils # 6.8 K/mm3 (1.8-7.8); Neutrophils % 69.2 % (37.0-80.0); Platelet Count 320 K/mm3 (142-424); Red Blood Count 4.99 M/mm3 (4.20-5.40); Red Cell Distribution Width 13.8 % (11.5-17.5); White Blood Count 9.9 K/mm3 (4.8-10.8)
[2022-02-01 14:27] LABS: Chloride 107 mmol/L (98-107); Sodium 140 mmol/L (136-145); WBC,Urine Occasional #/hpf (0-3)
[2022-02-01 14:28] LABS: Bacteria,Urine Trace /lpf; Mucus,Urine 1+ /lpf; Squamous Epithelial Cell,Urine Occasional #/hpf (0-5)
[2022-02-01 14:29] LABS: Amylase 66 U/L (30-110)
[2022-02-01 14:30] LABS: Alanine Aminotransferase 19 U/L (12-78); Albumin Level 4.4 g/dl (3.5-5.0); Albumin/Globulin Ratio 1.5 (1.1-1.8); Alkaline Phosphatase 118 U/L (38-126); Aspartate Amino Transferase 29 U/L (14-36); Bilirubin,Total 0.8 mg/dl (0.2-1.3); Blood Urea Nitrogen 8 mg/dl (7-17); Calcium 8.5 mg/dl (8.4-10.2); Carbon Dioxide 28 mmol/L (22.0-30.0); Creatinine Clearance Estimated 86 mL/min (50-200); Estimated Glomerular Filt Rate 87 ml/min (>60); GFR (African American) 106 ML/MIN (>60); Globulin 2.9 g/dL (1.3-3.2); Glucose 117 mg/dl (74-100); Lipase 138 U/L (23-300); Total Protein,Serum 7.3 g/dl (6.3-8.2)
--- NOTE | 2022-02-01 14:49 | HMH.EDGENADL ---
ED Disposition Clinical Impression: Left upper quadrant abdominal pain Disposition: Home, Self-Care Condition on Discharge: Good Instructions: DI for Abdominal Pain-Adult Additional Instructions: Tylenol or ibuprofen for abdominal pain. Additional instructions for ABDOMINAL PAIN: See your physician as soon as possible for further evaluation. Return immediately if worsening abdominal pain, vomiting, shortness of breath, fever, vomiting of blood or abdominal distention. Referrals: Aubrey Lugo MD [Primary Care Provider] - - Critical Care Critical Care Time: No Attestation: On 02/01/22, the high probability of a clinically significant, sudden or life threatening deterioration of the following system(s) required my full and direct attention, intervention and personal management. The time I documented below is in addition to time spent performing reported procedures but includes the following listed in this critical care notation. Medical Decision Making - Teto Inquiry Pt receiving controlled substance: No Vital Signs: 02/01/22 13:50 02/01/22 15:12 02/01/22 15:30 Temperature 98.3 F Temperature Source Oral Pulse Rate 65 73 Pulse Rate [Right] 82 Respiratory Rate 16 20 Blood Pressure 107/58 L 115/75 Blood Pressure [Right Arm] 132/70 Blood Pressure Mean 73 86 Blood Pressure Mean [Right Arm] 90 Blood Pressure Source Blood Pressure Source [Right Arm] Automatic Cuff Blood Pressure Position Blood Pressure Position [Right Arm] Sitting 02 Sat by Pulse Oximetry 98 98 98 Oxygen Delivery Method Room Air Room Air 02/01/22 16:00 02/01/22 16:30 02/01/22 16:59 Temperature Temperature Source Pulse Rate 73 72 61 Pulse Rate [Right] Respiratory Rate 20 28 H Blood Pressure 114/67 109/66 L 106/66 L Blood Pressure [Right Arm] Blood Pressure Mean 87 84 Blood Pressure Mean [Right Arm] Blood Pressure Source Automatic Cuff Blood Pressure Source [Right Arm] Blood Pressure Position Sitting Blood Pressure Position [Right Arm] 02 Sat by Pulse Oximetry 99 99 95 Oxygen Delivery Method Room Air 02/01/22 19:23 Temperature 98.3 F Temperature Source Oral Pulse Rate 70 Pulse Rate [Right] Respiratory Rate 16 Blood Pressure 111/74 Blood Pressure [Right Arm] Blood Pressure Mean Blood Pressure Mean [Right Arm] Blood Pressure Source Automatic Cuff Blood Pressure Source [Right Arm] Blood Pressure Position Sitting Blood Pressure Position [Right Arm] 02 Sat by Pulse Oximetry Oxygen Delivery Method Room Air - Lab Data Lab Results 02/01/22 14:09: Urine Color Yellow, Urine Appearance Clear, Urine pH 6.0, Ur Specific [place] 1.025, Urine Protein Negative, Urine Glucose (UA) Negative, Urine Ketones Negative, Urine Blood Negative, Urine Nitrate Negative, Urine Bilirubin Negative, Urine Urobilinogen 0.2, Ur Leukocyte Esterase Negative, Urine WBC Occasional, Ur Squamous Epith Cells Occasional, Urine Bacteria Trace, Urine Mucus 1+ 02/01/22 14:09: WBC 9.9, RBC 4.99, Hgb 15.3, Hct 44.8, MCV 89.9, MCH 30.7, MCHC 34.1, RDW 13.8, Plt Count 320, MPV 8.7, Neut % (Auto) 69.2, Lymph % (Auto) 22.5, Gregory % (Auto) 4.8, Eos % (Auto) 2.1, Baso % (Auto) 1.5, Neut # (Auto) 6.8, Lymph # (Auto) 2.2, Gregory # (Auto) 0.5, Eos # (Auto) 0.2, Baso # (Auto) 0.1 02/01/22 14:09: Sodium 140, Potassium 4.0, Chloride 107, Carbon Dioxide 28, Anion Gap 9.0, BUN 8, Creatinine 0.70, Estimated Creat Clear 86, Estimated GFR 87, Est GFR ( Amer) 106, Glucose 117 H, Calcium 8.5, Total Bilirubin 0.8, AST 29, ALT 19, Alkaline Phosphatase 118, Total Protein 7.3, Albumin 4.4, Globulin 2.9, Albumin/Globulin Ratio 1.5, Amylase 66, Lipase 138 Result diagrams: 02/01/22 14:09 02/01/22 14:09 Orders (Tests/Meds): ED MEDICATIONS Discontinued Medications Generic Name Dose Route Start Last Admin Trade Name Freq PRN Reason Stop Dose Admin Iopamidol 75 ml 02/01/22 15:46 02/01/22 15:47 Iopamidol-370
--- NOTE | 2022-02-01 14:58 | CT_ITS ---
FINAL REPORT CLINICAL HISTORY: L sided abdo pain COMPARISON: 11/15/2020 FINDINGS: Technique: The patient was injected with intravenous contrast. Axial images through the abdomen and pelvis were performed. This study was performed with techniques to keep radiation doses as low as reasonably achievable (ALARA). Individualized dose reduction techniques using automated exposure control or adjustment of mA and/or kV according to the patient's size were employed. Abdomen: The lung bases are clear. The liver is normal in size and attenuation. The spleen is unremarkable. The adrenals are normal. The pancreas is unremarkable. There is a less than 3 mm nonobstructing left renal stone. The aorta is normal in caliber. There is no free fluid or adenopathy. Pelvis: The appendix is unremarkable. The patient is status post hysterectomy. The urinary bladder is unremarkable. There is no free fluid or adenopathy. IMPRESSION: Left renal stone. Reviewed, Interpreted and Dictated by Juan Petersen III, MD Transcribed by Lorri Hewitt Authenticated by Juan Petersen III, MD on 02/01/2022 04:48:10 PM [facility]
--- NOTE | 2022-02-01 15:31 | PC.NURSE ---
Spoke with tamy from [facility] she stated that CT scans had been read but weren't crossing over. She will be printing them out and bringing them to us.
--- NOTE | 2022-02-01 17:30 | PC.NURSE ---
Rounded on patient. Advised her of wait times. Extra blanket provided. No other needs at this time.
--- NOTE | 2022-02-01 18:33 | PC.NURSE ---
checked on pt at this time, states no needs at this time will continue to monitor
== END 2022-02-01 19:24 | disposition home or self-care (01) ==
PROVIDERS: Emergency Provider Emergency Medicine; PCP Internal Medicine Adolescent Medicine
DX: R10.12 Left upper quadrant pain (principal); R10.32 Left lower quadrant pain; N23 Unspecified renal colic; K21.9 Gastro-esophageal reflux disease without esophagitis; I10 Essential (primary) hypertension; F17.210 Nicotine dependence, cigarettes, uncomplicated; Z79.899 Other long term (current) drug therapy
CPT/HCPCS: 74177; 80053; 81001; 82150; 83690; 85025; 99284; Q9967

== ENCOUNTER → 2022-05-02 09:11 | Outpatient (CLI) | payer BC, SELFPAY ==
--- NOTE | 2022-05-02 09:17 | US_ITS ---
FINAL REPORT CLINICAL HISTORY: LT SIDED ABD PAIN COMPARISON: CT dated February 01, 2022 FINDINGS: Sonographic images of the abdomen were obtained. The liver has an unremarkable appearance with normal echogenicity. The gallbladder has an unremarkable appearance without evidence of gallstones. There is no evidence of biliary ductal dilatation. The common hepatic duct measures 5 mm, which is within normal limits. Limited images of the pancreas are unremarkable. The spleen size is normal. The right kidney measures 10.3 in length. The left kidney measures 11.7 in length. There is normal renal echogenicity. There is no evidence of hydronephrosis. The aorta is overall small in caliber with mild to moderate plaque. The maximum diameter of the abdominal aorta is 1.7 cm and the distal abdominal or you is 1.0 cm. Limited images of the inferior vena cava are unremarkable. IMPRESSION: Aorta is small in caliber with mild to moderate plaque. Otherwise unremarkable exam. Reviewed, Interpreted and Dictated by Juan Petersen III, MD Transcribed by Shelby Hodge Authenticated and [facility]
== END ==
PROVIDERS: PCP Internal Medicine Adolescent Medicine; Visit Provider Nurse Practitioner Family
DX: R10.9 Unspecified abdominal pain (principal)
CPT/HCPCS: 76700

== ENCOUNTER → 2022-05-22 14:39 | Outpatient (CLI) | payer BC, SELFPAY ==
--- NOTE | 2022-05-22 14:45 | MM_ITS ---
PROCEDURE INFORMATION: Exam: MG Bilateral Screening 3D Mammography Exam date and time: 05/22/2022 2:49 PM Age: 57 years old Clinical indication: Screening mammogram. Family history of breast cancer in sister and in aunt and Uncle TECHNIQUE: Imaging protocol: Bilateral Screening tomosynthesis and 2D mammography including computer-aided detection (CAD) when performed. COMPARISON: 1. MG MM DIG SCREENING MAMM BI W/CAD 10/19/2020 9:39 AM 2. MG MM DIG MAMM DX UNILAT RT CAD 10/20/2019 1:09 PM 3. MG MM DIG SCREENING MAMM BI W/CAD 09/04/2019 8:57 AM 4. MG SCBI MM Dig screening mamm BI w/CAD 12/27/2017 3:27 PM FINDINGS: MAMMOGRAPHY: Breast composition: The breast is heterogeneously dense, which may obscure small masses. Mass: None. Architectural distortion: No new or suspicious architectural distortion. Calcifications: No new or suspicious calcifications are present Asymmetric density: No new or suspicious asymmetric density is present Skin thickening: None. Axillary adenopathy: None. IMPRESSION: No mammographic evidence of malignancy. Recommend annual screening mammography unless otherwise clinically indicated. ASSESSMENT: BI-RADS category 1: Negative
--- NOTE | 2022-05-22 14:45 | US_ITS ---
FINAL REPORT CLINICAL HISTORY: NONTOXIC SINGLE THYROID NODULE COMPARISON: October 19, 2020 FINDINGS: THYROID ULTRASOUND Sonographic images of the thyroid was obtained. The right lobe of the thyroid measures 5.2 x 1.3 x 1.9 cm. In the right lobe there is a cystic TI-RADS 1 nodule measuring 5 x 4 x 3 mm. There is a 2nd mostly cystic TI-RADS 1 nodule measuring 5 x 5 x 3 mm. There is a 3rd cystic TI-RADS 1 nodule measuring 5 x 5 x 3 mm. Visually stable from prior exam. The left lobe of the thyroid measures 4.2 x 1.1 x 1.3 cm. In the left lobe there is a cystic TI-RADS 1 nodule measuring 4 x 2 x 2 mm. Visually stable from prior exam. The isthmus measures 3 mm. IMPRESSION: Stable small cystic nodules. No follow-up is recommended. Reviewed, Interpreted and Dictated by Juan Petersen III, MD Transcribed by Shelby Hodge Authenticated and [facility] [place] [place]
== END ==
LOC: RAD 14:40
PROVIDERS: PCP Internal Medicine Adolescent Medicine; Visit Provider Nurse Practitioner
DX: Z12.31 Encounter for screening mammogram for malignant neoplasm of breast (principal); E04.1 Nontoxic single thyroid nodule
CPT/HCPCS: 76536; 77063; 77067

== ENCOUNTER 2023-01-28 09:46 | Emergency (ER) | payer BC, SELFPAY ==
--- NOTE | 2023-01-28 09:46 | ECG_ITS ---
APPROVED REPORT Exam: Resting ECG HR:90 bpm ECG Measurements Heart Rate 90 AXES PA 143 P 50 QRSd 93 QRS 74 QT 339 T 56 QTc 387 Conclusion SINUS RHYTHM POSSIBLE RIGHT VENTRICULAR CONDUCTION DELAY [RSR (QR) IN V1/V2] BORDERLINE ECG UNCONFIRMED REPORT Electronically signed by : Aubrey Lugo MD 01/30/2023 03:09:23
[2023-01-28 09:48] VITALS: BP 137/86; PULSE 93; RESP 16; TEMP 37; O2SAT 99; BMI 22.3
[2023-01-28 09:49] VITALS: BMI 22.3
--- NOTE | 2023-01-28 09:50 | XR_ITS ---
PROCEDURE INFORMATION: Exam: XR Chest Exam date and time: 01/28/2023 10:24 AM Age: 57 years old Clinical indication: Pain; On breathing; Additional info: Chest pain TECHNIQUE: Imaging protocol: Radiologic exam of the chest. Views: 1 view. COMPARISON: CT CHEST W CON 10/19/2020 10:10 AM FINDINGS: Lungs: Unremarkable. No consolidation. Pleural spaces: Unremarkable. No pleural effusion. No pneumothorax. Heart/Mediastinum: Unremarkable. No cardiomegaly. Bones/joints: Unremarkable. IMPRESSION: No acute findings.
--- NOTE | 2023-01-28 09:54 | CT_ITS ---
PROCEDURE INFORMATION: Exam: CT Abdomen And Pelvis Without Contrast Exam date and time: 01/28/2023 10:07 AM Age: 57 years old Clinical indication: Abdominal pain; Other: Under left rib and epigastric pain; Additional info: Concern for L nephrolitiasis TECHNIQUE: Imaging protocol: Computed tomography of the abdomen and pelvis without contrast. Radiation optimization: All CT scans at this facility use at least one of these dose optimization techniques: automated exposure control; mA and/or kV adjustment per patient size (includes targeted exams where dose is matched to clinical indication); or iterative reconstruction. REPORTING DATA: Count of CT and Cardiac NM exams in prior 12 months: This patient has received [address] and 0 known cardiac nuclear medicine studies in the 12 months prior to the current study. COMPARISON: CT ABDOMEN PELVIS W CON 02/01/2022 3:37 PM FINDINGS: Diaphragm: Small hiatal hernia. Liver: Normal. No mass. Gallbladder and bile ducts: Normal. No calcified stones. No ductal dilation. Pancreas: Normal. No ductal dilation. Spleen: Normal. No splenomegaly. Adrenal glands: Normal. No mass. Kidneys and ureters: Multiple, tiny, 1-2 mm, nonobstructive left renal stones. At least two, 1 mm nonobstructive right renal collecting stones. No hydroureteronephrosis in either kidney. Stomach and bowel: Unremarkable. No obstruction. No mucosal thickening. Appendix: No evidence of appendicitis. Intraperitoneal space: Unremarkable. No free air. No significant fluid collection. Vasculature: Unremarkable. No abdominal aortic aneurysm. Lymph nodes: Unremarkable. No enlarged lymph nodes. Urinary bladder: Unremarkable as visualized. Reproductive: Unremarkable as visualized. Bones/joints: Unremarkable. No acute fracture. Soft tissues: Unremarkable. IMPRESSION: Multiple, tiny, 1-2 mm, nonobstructive left renal stones. At least two, 1 mm nonobstructive right renal collecting stones. No hydroureteronephrosis in either kidney.
[2023-01-28 10:02] LABS: Basophils # 0.2 K/mm3 (0-0.2); Basophils % 2.4 % (0.1-2.0); Eosinophils # 0.2 K/mm3 (0.0-0.4); Eosinophils % 2.1 % (0.1-12.0); Hematocrit 47.9 % (37.0-47.0); Hemoglobin 16.3 g/dL (12.2-16.2); Lymphocytes # 2.5 K/mm3 (0.7-4.5); Lymphocytes % 25.7 % (10-50); Mean Corpuscular HGB Conc 34.1 g/dL (31.8-35.4); Mean Corpuscular Hemoglobin 29.9 pg (27.0-31.2); Mean Corpuscular Volume 87.7 fl (81-99); Mean Platelet Volume 7.8 fl (7.4-10.4); Monocytes # 0.6 K/mm3 (0.1-1.0); Monocytes % 6.1 % (1.7-9.3); Neutrophils # 6.2 K/mm3 (1.8-7.8); Neutrophils % 63.8 % (37.0-80.0); Platelet Count 361 K/mm3 (142-424); Red Blood Count 5.46 M/mm3 (4.20-5.40); Red Cell Distribution Width 13.6 % (11.5-17.5); White Blood Count 9.8 K/mm3 (4.8-10.8)
--- NOTE | 2023-01-28 10:02 | HMH.EDGENADL ---
Discharge Plan Disposition Patient Disposition: Home, Self-Care Condition: Fair Prescriptions Prescriptions: New lidocaine 5 % adhesive patch,medicated 1 patch topical DAILY Qty: 15 0RF Rx Instructions: leave on most painful area for up to 12 hrs No Action conjugated estrogens [Premarin] 0.9 tablet 0.9 mg PO DAILY ranitidine HCl 150 MG capsule 150 mg PO DAILY omeprazole 20 MG tablet,delayed release (DR/EC) 20 mg PO DAILY fluticasone propionate 120 SPR/BOT spray,suspension 2 spr intranasal DAILY metoprolol pittman-hydrochlorothiaz 1 EACH tablet extended release 24 hr 1 ea PO BID tamsulosin 0.4 MG capsule 0.4 mg PO HS Qty: 10 0RF Referrals Follow up/Referrals: Provider,Referral, MD [Referring] - See instructions Clinical Impressions Clinical Impression: Chest pain Instructions Patient Instructions: DI for Atypical Chest Pain Discharge ED Provider: Solo Zarco General Adult HPI General Chief complaint: Chest Pain Stated complaint: chest pain Time Seen by Provider: 01/28/23 09:50 Mode of Arrival: Ambulatory Source of Information: Patient Limitations: No Limitations Description of Symptoms (Recalled from ER Triage Doc. by RN): Pt presents to ED c/o chest pain that has been present x 4 days. pt states the pain starts under her left breat and radiates to her chest. History of Present Illness HPI narrative: Patient is a 57-year-old female with past medical history of GERD, nephrolithiasis who presents with chest pain. She says that her pain has been going on the last 4 to 5 days. She says that its mainly under the left breast and seems to radiate up into her chest. It does not go into her arm or her jaw. She says that she does occasionally get some left arm numbness but it is not happening when she only has chest pain and has been happening for quite a while. She denies any nausea or diaphoresis. She does endorse some left upper quadrant pain that she said has been intermittently chronic and says that she has been diagnosed with a kidney stone in the past to explain this. Denies any diarrhea or constipation. Related Data Home Medications Medication Instructions Recorded Confirmed fluticasone propionate 50 2 spr intranasal DAILY allergies 09/29/18 01/17/19 mcg/actuation nasal spray,suspension metoprolol suc 100 1 ea PO BID heart 09/29/18 01/17/19 mg-hydrochlorothiazide 12.5 mg tablet,ext.rel 24 hr conjugated estrogens 0.9 mg tablet 0.9 mg PO DAILY hormone replacement 01/17/19 01/17/19 (Premarin) omeprazole 20 mg tablet,delayed 20 mg PO DAILY GERD 01/17/19 01/17/19 release ranitidine HCl 150 mg capsule 150 mg PO DAILY GERD 01/17/19 01/17/19 Previous Rx's Medication Instructions Recorded tamsulosin 0.4 mg capsule 0.4 mg PO HS #10 caps 09/04/20 lidocaine 5 % topical patch 1 patch topical DAILY #15 ea 01/28/23 Allergies Allergy/AdvReac Type Severity Reaction Status Date / Time No Known Allergies Allergy Verified 01/17/19 07:21 [facility] Disclaimer: The information contained in this section may have been updated after the patient was seen, as this information can be updated by other users. Social History Smoking Status: Never smoker alcohol intake: never counseling provided: provider counseling substance use type: denies use current occupational status: employed Travel in the last 8 weeks: None caffeine: Yes ROS Obtained: Yes All systems reviewed & no additional complaints except as documented Physical Exam General General appearance: alert and in no apparent distress Head Head exam: atraumatic, normocephalic and normal inspection Eye Eye exam: Present normal appearance and PERRL ENT ENT exam: Present normal exam, mucous membranes moist and normal external ear exam Neck Neck exam: Present normal inspection and trachea midline Chest Chest inspection: Present normal inspection and symmetric ch
--- NOTE | 2023-01-28 10:03 | PC.NURSE ---
pt to CT
[2023-01-28 10:05] LABS: Chloride 106 mmol/L (98-107); Potassium 3.4 mmoL/L (3.5-5.1); Sodium 141 mmol/L (136-145)
[2023-01-28 10:07] LABS: Lipase 170 U/L (23-300)
[2023-01-28 10:08] LABS: Anion Gap 12.4 mEq/L (5-15); Blood Urea Nitrogen 7 mg/dl (7-17); Carbon Dioxide 26 mmol/L (22.0-30.0); Creatinine Clearance Estimated 85 mL/min (50-200); Estimated Glomerular Filt Rate 87 ml/min (>60); GFR (African American) 105 ML/MIN (>60); Glucose 98 mg/dl (74-100)
[2023-01-28 10:22] LABS: Troponin I < 0.01 ng/ml (0.00-0.034)
--- NOTE | 2023-01-28 11:16 | PC.NURSE ---
0708 PATIENT ASSISTED TO BATHROOM AND BACK TO BED, GIVEN BLANKET, PATIENT HAS NO OTHER NEEDS AT THIS TIME
[2023-01-28 11:25] LABS: Microscopic, Urine URINE MICROSCOPIC (MICROSCOPIC)
[2023-01-28 11:27] LABS: Appearance,Urine CLEAR (Clear); Bilirubin,Urine Negative (Negative); Blood, Urine Negative (Negative); Color,Urine YELLOW (Yellow); Glucose,Urine (UA) Negative (Negative); Ketones,Urine Negative (Negative); Leukocyte Esterase,Urine Negative (Negative); Nitrate,Urine Negative (Negative); Protein,Urine Negative (Negative); Specific Gravity, Urine <= 1.005 (1.005-1.030); Urobilinogen,Urine 0.2 EU/dl (0.2)
[2023-01-28 11:43] LABS: Bacteria,Urine Trace /lpf; Squamous Epithelial Cell,Urine Occasional #/hpf (0-5); WBC,Urine Occasional #/hpf (0-3)
[2023-01-28 12:20] VITALS: BP 116/67; PULSE 67; RESP 16; TEMP 37; O2SAT 97
== END 2023-01-28 12:31 | disposition home or self-care (01) ==
PROVIDERS: Emergency Provider Student in an Organized Health Care Education/Training Program; PCP Nurse Practitioner
DX: R07.89 Other chest pain (principal); R10.12 Left upper quadrant pain; G89.29 Other chronic pain
CPT/HCPCS: 71045; 74176; 80048; 81001; 83690; 84484; 85025; 93005; 99285

== ENCOUNTER → 2023-03-13 08:55 | Outpatient (CLI) | payer BC, SELFPAY ==
--- NOTE | 2023-03-13 09:02 | XR_ITS ---
FINAL REPORT TECHNIQUE: Bone densitometry calculations of the lumbar spine and left hip were obtained. CLINICAL HISTORY: . post menopausal screening FINDINGS: Using L1-4, the bone mineral density of the spine is 0.814 g/cm2, corresponding to T-score of -2.1. Using the left hip, the bone mineral density of the femoral neck is 0.577 g/cm2, corresponding to a T-score of -2.5. Using the right hip, the bone mineral density of the femoral neck is 0.613 g/cm2, corresponding to a T-score of -2.1. NOTE: T-score: Standard deviation compared with peak bone mass of young adult mean. *Following the recommendations of the International Society of Bone densitometry, classification of hip BMD is based on the lower of two T-scores; total hip or femoral neck. IMPRESSION: Diminished bone mineral density of the lumbar spine and proximal right femur consistent with osteopenia. Diminished bone mineral density of the proximal left femur consistent with osteoporosis. FRAX data was not reported because some of the T-scores are at or below -2.5. Reviewed, Interpreted and Dictated by Cristopher Darden MD Transcribed by Lorri Hewitt Authenticated and [facility]
== END ==
PROVIDERS: PCP Nurse Practitioner; Visit Provider Nurse Practitioner
DX: Z13.820 Encounter for screening for osteoporosis (principal)
CPT/HCPCS: 77080

== ENCOUNTER 2024-05-02 16:39 | Outpatient (CLI) | payer BC, SELFPAY ==
[2024-05-02 16:49] LABS: Basophils # 0.2 K/mm3 (0-0.2); Eosinophils # 0.3 K/mm3 (0.0-0.4); Eosinophils % 3.5 % (0.1-12.0); Hematocrit 44.9 % (37.0-47.0); Hemoglobin 15.4 g/dL (12.2-16.2); Lymphocytes # 2.4 K/mm3 (0.7-4.5); Lymphocytes % 28.9 % (10-50); Mean Corpuscular HGB Conc 34.3 g/dL (31.8-35.4); Mean Corpuscular Hemoglobin 30.6 pg (27.0-31.2); Mean Corpuscular Volume 89.4 fl (81-99); Mean Platelet Volume 8.4 fl (7.4-10.4); Monocytes # 0.5 K/mm3 (0.1-1.0); Monocytes % 5.7 % (1.7-9.3); Neutrophils # 5.1 K/mm3 (1.8-7.8); Platelet Count 264 K/mm3 (142-424); Red Blood Count 5.02 M/mm3 (4.20-5.40); Reticulocyte % (Auto) 1.6 % (0.9-3.2); White Blood Count 8.4 K/mm3 (4.8-10.8)
[2024-05-02 17:22] LABS: Alanine Aminotransferase 24 U/L (12-78); Albumin Level 4.2 g/dl (3.5-5.0); Albumin/Globulin Ratio 1.5 (1.1-1.8); Alkaline Phosphatase 142 U/L (38-126); Anion Gap 12.4 mEq/L (5-15); Aspartate Amino Transferase 30 U/L (14-36); Bilirubin,Total 0.6 mg/dl (0.2-1.3); Blood Urea Nitrogen 10 mg/dl (7-17); Calcium 9.4 mg/dl (8.4-10.2); Carbon Dioxide 27 mmol/L (22.0-30.0); Chloride 104 mmol/L (98-107); Estimated Glomerular Filt Rate 103 ml/min (>60); GFR (African American) 125 ML/MIN (>60); Globulin 2.8 g/dL (1.3-3.2); Glucose 95 mg/dl (74-100); Potassium 4.4 mmoL/L (3.5-5.1); Sodium 139 mmol/L (136-145)
[2024-05-02 17:27] LABS: C-Reactive Protein 2.1 mg/L (0-4)
[2024-05-02 17:39] LABS: 25-OH Vitamin D, Total 62.3 ng/mL (30-100)
[2024-05-02 17:44] LABS: Free Thyroxine Index 2.5 ug/dL (5.93-13.13); T4 (Thyroxine) 7.6 ug/dl (5.53-11.0); Triiodothryronine (T3) Uptake 33 % (23.5-40.5)
[2024-05-02 17:57] LABS: Thyroid Stimulating Hormone 1.24 uIU/mL (0.465-4.68)
[2024-05-02 18:28] LABS: Vitamin B12 551 pg/mL (239-931)
[2024-05-02 18:32] LABS: Folate 6.27 ng/mL
[2024-05-02 18:38] LABS: Erythrocyte Sedimentation Rate 14 mm/hr (0-30)
[2024-05-02 21:18] LABS: Hemoglobin A1C 5.1 % (4.0-6.0)
[2024-05-17 12:40] LABS: Antinuclear Antibodies (ANA) Negative
== END 2024-05-02 23:59 | disposition home or self-care (01) ==
LOC: LAB.DROPOF 16:39
PROVIDERS: PCP Nurse Practitioner Family; Visit Provider Nurse Practitioner Family
DX: M25.50 Pain in unspecified joint (principal); R20.2 Paresthesia of skin; Z68.23 Body mass index [BMI] 23.0-23.9, adult
CPT/HCPCS: 80050; 80053; 82306; 82607; 82746; 83036; 84436; 84443; 84479; 85025; 85044; 85651; 86038; 86140

== ENCOUNTER 2024-09-09 14:30 | Outpatient (CLI) | payer BC, SELFPAY ==
--- NOTE | 2024-09-09 14:30 | MM_ITS ---
PROCEDURE INFORMATION: Exam: MG Bilateral Screening 3D Mammography Exam date and time: 09/09/2024 2:19 PM Age: 59 years old Clinical indication: Screening examination. TECHNIQUE: Imaging protocol: Bilateral Screening tomosynthesis and 2D mammography including computer-aided detection (CAD) when performed. COMPARISON: 1. MG MM DIG SCREENING MAMM BI W/CAD 05/22/2022 2:49 PM 2. MG MM DIG SCREENING MAMM BI W/CAD 10/19/2020 9:39 AM FINDINGS: MAMMOGRAPHY: Breast composition: The breasts are heterogeneously dense, which may obscure small masses. Mass: None. Architectural distortion: None. Calcifications: No suspicious calcifications. Asymmetric density: None. Skin thickening: None. Axillary adenopathy: None. IMPRESSION: No mammographic evidence of malignancy. Annual screening is recommended unless otherwise clinically indicated. ASSESSMENT: BI-RADS Category 1: Negative.
== END 2024-09-09 23:59 | disposition home or self-care (01) ==
LOC: RAD 14:30
PROVIDERS: PCP Family Medicine; Visit Provider Family Medicine
DX: Z12.31 Encounter for screening mammogram for malignant neoplasm of breast (principal)
CPT/HCPCS: 77063; 77067

== ENCOUNTER 2024-09-16 10:09 | Outpatient (CLI) | payer BC, SELFPAY ==
--- NOTE | 2024-09-16 10:09 | US_ITS ---
FINAL REPORT CLINICAL HISTORY: lipoma COMPARISON: None FINDINGS: Limited sonographic images were obtained of the soft tissues in the left axillary region at the area of palpable abnormality. There are several borderline size nodes identified in the left axilla. There is no well-defined soft tissue mass or fluid collection. IMPRESSION: Several borderline size nodes in the area of interest. No well-defined soft tissue mass or fluid collection. If indicated, MRI may be helpful. Reviewed, Interpreted and Dictated by Jaun Petersen III, MD Transcribed by Yuliya Parker Authenticated and [facility]
== END 2024-09-16 23:59 | disposition home or self-care (01) ==
LOC: RAD 10:09
PROVIDERS: PCP Family Medicine; Visit Provider Surgery
DX: D17.9 Benign lipomatous neoplasm, unspecified (principal)
CPT/HCPCS: 76642

== ENCOUNTER 2024-10-03 07:27 | Outpatient (CLI) | payer BC, SELFPAY ==
--- NOTE | 2024-10-03 07:28 | MR_ITS ---
FINAL REPORT TECHNIQUE: Multiplanar and multisequence imaging of the shoulder was obtained without contrast. CLINICAL HISTORY: Lipoma under arm pit , marker at area of interest tingling and pain down left arm as well FINDINGS: Bones/Joint: Bone marrow signal intensity is normal. There is no fracture, edema, or pathologic marrow replacement. The AC joint is intact. Rotator Cuff: There is no full thickness rotator cuff tear. There is no fatty atrophy of the rotator cuff musculature. Labrum: No labral tear is identified. The biceps labral complex is intact. The glenohumeral ligaments are intact. Other: The more distal biceps tendon is located within the bicipital groove. There is no joint effusion. There is a small amount of fluid in the subcoracoid bursa. No circumscribed mass is seen deep to the marker placed is an area of abnormality. There are benign-appearing left axillary lymph nodes present. IMPRESSION: No acute osseous abnormality, rotator cuff tendon tear, or convincing labral tear. No circumscribed mass at the area of interest. Reviewed, Interpreted and Dictated by Christin Serrano MD Transcribed by Lorri Hewitt Authenticated and [facility]
--- NOTE | 2024-10-03 07:28 | MR_ITS ---
FINAL REPORT TECHNIQUE: Multiplanar and multisequence imaging of the cervical spine was obtained. CLINICAL HISTORY: tingling down left arm FINDINGS: Alignment is normal. Vertebral body height is preserved. Signal intensity within the substance of the spinal cord is normal. Bone marrow signal intensity is within normal limits. No acute paraspinal abnormality. C2/3: Central disc protrusion is present. There is no central stenosis or neuroforaminal narrowing. C3/4: Small central disc protrusion is present. There is no central stenosis or neuroforaminal narrowing. C4/5: There is no focal disc herniation, central stenosis or neural foraminal narrowing. C5/6: There is no focal disc herniation, central stenosis or neural foraminal narrowing. C6/7: There is no focal disc herniation, central stenosis or neural foraminal narrowing. C7/T1: There is no focal disc herniation, central stenosis or neural foraminal narrowing. IMPRESSION: Central disc protrusions at C2-3 and C3-4 without evidence of central stenosis or neuroforaminal narrowing. Reviewed, Interpreted and Dictated by Christin Serrano MD Transcribed by Lorri Hewitt Authenticated and [facility]
== END 2024-10-03 23:59 | disposition home or self-care (01) ==
LOC: RAD 07:28
PROVIDERS: PCP Family Medicine; Visit Provider Surgery
DX: D17.9 Benign lipomatous neoplasm, unspecified (principal)
CPT/HCPCS: 72141; 73221

== ENCOUNTER 2024-11-03 15:00 | Outpatient (RCR) | payer BC, SELFPAY ==
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
== END 2024-11-03 23:59 | disposition home or self-care (01) ==
LOC: PT 15:00
PROVIDERS: Visit Provider Family Medicine
DX: M50.90 Cervical disc disorder, unspecified, unspecified cervical region (principal)
CPT/HCPCS: 97110; 97140; 97163

== ENCOUNTER 2025-02-05 07:47 | Outpatient (RCR) | payer BC, SELFPAY ==
--- NOTE | 2025-02-05 16:50 | HMH.PTOPWND ---
Rehab Outpt Wound Evaluation Rehab OP Wound Evaluation Start: 02/05/25 16:06 Freq: Status: Active Protocol: Document 02/05/25 16:23 PHOJAKOB (Rec: 02/05/25 16:50 PHORNE [id number]) E-signed By Tonny Lopez, PT Subjective/History History History This is the initial PT lymphedema eval for Marleni Sims, 59 yowf who presents with c/o 1 yr hx of increased fullness throughout the L axillary region. She reports axillary US showed enlarged lymph nodes, but MRI did not. She reports she was treated with physical therapy for cervical spine pathology, but this was unsuccessful. She reports intermittent pain/ numbness/tingling throughout her L UE. She also c/o inability to hold or lift objects due to these symptoms at time. She reports hx of hysterectomy, colon resection, basal cell cancer, and melanoma which has been treated by dermatology in the past. Subjective Subjective Currently no pain in the L UE, but at worst pain is 8/10. 2/ 4 TTP noted in the L axilla with intermittent shooting pains into the L UE during palpation. Minimal palpable edema in the L axilla and lateral side of L breast. No erythema noted. Lymphedema Eval Classification of Lymphedema Secondary Lymphedema Yes: unsure of exact path Stemmer's sign Stemmer's Sign no Stage of Lymphedema Lymphedema stages Stage 0 (subjective c/o heaviness and aching) Skin Changes Dry Skin Yes Discoloration of Skin Yes Other Changes Yes Pain Scale Pain Scale (0-10) 8 Affected Extremities Areas Affected by Lymphedema/Edema Left Upper Extremity,Left Breast,Left Axilla Upper Extremity Measurements Left MCP Measurement (cm) 18.3 Web Space Measurement (cm) 20.3 Ulnar Styloid Process Measurement (cm) 15.4 10 cm Proximal to Ulnar Styloid 18.0 Measurement (cm) 20 cm Proximal to Ulnar Styloid 22.8 Measurement (cm) 30 cm Proximal to Ulnar Styloid 23.1 Measurement (cm) 40 cm Proximal to Ulnar Styloid 24.9 Measurement (cm) 50 cm Proximal to Ulnar Styloid 37.8 Measurement (cm) Upper Extremity Measurement Total (cm) 180.6 Right MCP Measurement (cm) 18.8 Web Space Measurement (cm) 20.5 Ulnar Styloid Process Measurement (cm) 15.5 10 cm Proximal to Ulnar Styloid 18.4 Measurement (cm) 20 cm Proximal to Ulnar Styloid 23.1 Measurement (cm) 30 cm Proximal to Ulnar Styloid 22.8 Measurement (cm) 40 cm Proximal to Ulnar Styloid 25.7 Measurement (cm) 50 cm Proximal to Ulnar Styloid 32.5 Measurement (cm) Upper Extremity Measurement Total (cm) 177.3 Manual Lymphatic Drainage Treatment Area MLD Treatment Area Left Upper Extremity,Left Breast,Left Axilla Wound Problems/Impairments Impairments Problems/Impairmments Palpation Tenderness,Impaired Strength,Impaired Endurance, Impaired Lifting,Lymphedema Present,Subjective C/O Pain, Impaired Self Care/Self Management Prognosis Rehab Potential Good Comment Skilled therapy services are indicated to reduce overall edema burden and decrease pain in an effort to improve ability to hold and manipulate objects with the L hand/UE in order to return to PLOF. Clinical Impression Consistent with Diagnosis Yes Additional details: I89.0: Lymphedema Short Term Goals Number of Weeks 2 Decreased Palpation Tenderness Yes: 1/4 L axilla Decrease Lymphedema Yes: No fibrotic edema in L breast Decrease Subjective C/O Pain Yes: 6/10 at worst L UE Patient to Understand Lymphedema Yes Treatment and Exercises Decrease Girth Measurments by (cm) Yes: L UE total by 3 cm Assisted Goals Number of Weeks 4 Decreased Palpation Tenderness Yes: 0/4 L axilla Decrease Lymphedema Yes: No fibrotic edema L axilla Decrease Subjective C/O Pain Yes: 4/10 at worst L UE Patient to be Ind w/ HEP Yes Patient to Adhere Lymphedema Precautions Yes Decrease Girth Measurments by (cm) Yes: L UE total by 6 cm Outpatient Therapy Plan of Care Treatment Plan May Include Therapeutic Exercise Including Home Yes Exercise Program Manual Therapy Techniques Yes Neuromuscular Re-education Yes Therapeutic Activities to Return to Yes Previous Functional/Work Level ADL/Self Care Education Yes Orthotics/Bracing/Splinting Yes Manual Lymphatic Drainage Yes Eval/Re-Eval Yes Frequency Times per week 1-2 Duration Number of Weeks 4 Addendums This patient is a candidate for social No or vocational rehab? Patient/Guardian verbally acknowledges Yes understanding of treatment program and consents to further treatment? Patient/Guardian verbally acknowledges Yes understanding of diagnosis, prognosis and goals for treatment? Eval Complexity PT Charges 84408 - High Complexity PHYSICIAN CERTIFICATION: I certify the specified therapy services for Marlenichris Reneeland are required, authorized, and reviewed every 30 days.
== END 2025-02-05 23:59 | disposition home or self-care (01) ==
LOC: PT 07:47
PROVIDERS: PCP Nurse Practitioner Family; Visit Provider Nurse Practitioner Family
DX: R59.0 Localized enlarged lymph nodes (principal)
CPT/HCPCS: 97163

== ENCOUNTER 2025-02-19 13:35 | Outpatient (CLI) | payer BC, SELFPAY ==
[2025-02-19 17:20] LABS: Basophils # 0.1 K/mm3 (0-0.2); Basophils % 0.9 % (0.1-2.0); Eosinophils # 0.3 K/mm3 (0.0-0.4); Eosinophils % 2.7 % (0.1-12.0); Hematocrit 44.9 % (37.0-47.0); Hemoglobin 15.4 g/dL (12.2-16.2); Lymphocytes # 2.5 K/mm3 (0.7-4.5); Lymphocytes % 26.7 % (10-50); Mean Corpuscular HGB Conc 34.3 g/dL (31.8-35.4); Mean Corpuscular Hemoglobin 29.8 pg (27.0-31.2); Mean Platelet Volume 10.6 fl (7.4-10.4); Monocytes # 0.7 K/mm3 (0.1-1.0); Monocytes % 7.4 % (1.7-9.3); Neutrophils # 5.7 K/mm3 (1.8-7.8); Nucleated Red Blood Cells # 0 10^3/uL; Nucleated Red Blood Cells % 0 %; Platelet Count 294 K/mm3 (142-424); Red Blood Count 5.16 M/mm3 (4.20-5.40); Red Cell Distribution Width 12.9 % (11.5-17.5); White Blood Count 9.2 K/mm3 (4.8-10.8)
[2025-02-19 17:48] LABS: Alanine Aminotransferase 21 U/L (12-78); Albumin Level 4.4 g/dl (3.5-5.0); Albumin/Globulin Ratio 1.5 (1.1-1.8); Alkaline Phosphatase 116 U/L (38-126); Anion Gap 15.7 mEq/L (5-15); Aspartate Amino Transferase 31 U/L (14-36); Blood Urea Nitrogen 8 mg/dl (7-17); Calcium 9.2 mg/dl (8.4-10.2); Carbon Dioxide 27 mmol/L (22.0-30.0); Chloride 103 mmol/L (98-107); Estimated Glomerular Filt Rate 103 ml/min (>60); GFR (African American) 124 ML/MIN (>60); Glucose 65 mg/dl (74-100); Potassium 4.7 mmoL/L (3.5-5.1); Sodium 141 mmol/L (136-145); Total Protein,Serum 7.4 g/dl (6.3-8.2)
[2025-02-19 18:05] LABS: 25-OH Vitamin D, Total 69.6 ng/mL (30-100); T4 (Thyroxine) 8.8 ug/dl (5.53-11.0)
[2025-02-19 18:19] LABS: Thyroid Stimulating Hormone 0.96 uIU/mL (0.465-4.68)
[2025-02-19 18:30] LABS: HIV Combo NEGATIVE (Negative)
[2025-02-19 18:38] LABS: Hepatitis C Ab Qual. W/ RFX NEGATIVE (Negative); Vitamin B12 545 pg/mL (239-931)
== END 2025-02-19 23:59 | disposition home or self-care (01) ==
LOC: LAB.DROPOF 02-20 12:14
PROVIDERS: PCP Nurse Practitioner Family; Visit Provider Nurse Practitioner Family
DX: Z11.4 Encounter for screening for human immunodeficiency virus [HIV] (principal); Z11.59 Encounter for screening for other viral diseases; D17.9 Benign lipomatous neoplasm, unspecified; R59.9 Enlarged lymph nodes, unspecified; R20.2 Paresthesia of skin
CPT/HCPCS: 80053; 82306; 82607; 84436; 84443; 85025; 86803; 87389

== ENCOUNTER 2025-02-27 07:43 | Outpatient (CLI) | payer BC, SELFPAY ==
--- NOTE | 2025-02-27 08:00 | CT_ITS ---
FINAL REPORT TECHNIQUE: Routine axial images were obtained from the lung apices to below the diaphragm following IV contrast administration. Individualized dose reduction techniques using automated exposure control or adjustment of the mA and/or kV according to the patient size were employed. CLINICAL HISTORY: Left Shoulder Pain, lymphadenopathy left side COMPARISON: 10/19/2020 FINDINGS: No acute lung disease is present. A calcified granuloma is seen in the right upper lobe. No pleural or pericardial effusion is seen. There is a densely calcified right paratracheal lymph node. There are small bilateral axillary lymph nodes measuring up to 1.7 cm. There is a small hiatal hernia. IMPRESSION: Small hiatal hernia. Small bilateral axillary lymph nodes measuring up to 1.7 cm. Reviewed, Interpreted and Dictated by Brenton Schumacher MD Transcribed by Rasheeda Hatch Authenticated and [facility]
[2025-02-27] MEDS: SODIUM CHLORIDE 0.9% 10ML SYR (RAD ONLY) 10 ML IV (08:08)
[2025-02-27] MEDS: IOPAMIDOL-370 (76%);100ML BOTTLE 75 ML IV (08:08)
== END 2025-02-27 23:59 | disposition home or self-care (01) ==
LOC: RAD 07:44
PROVIDERS: PCP Nurse Practitioner Family; Visit Provider Internal Medicine Medical Oncology
DX: R59.1 Generalized enlarged lymph nodes (principal)
CPT/HCPCS: 71260; Q9967

== ENCOUNTER 2025-06-03 10:36 | Outpatient (CLI) | payer BC, SELFPAY ==
--- OUTSIDE RECORDS SUMMARY | 2025-06-03 10:39 | XMS_ITS | Clinical Summary ---
Author Organization [facility] Address [address] [place] [id number] Care Team Providers Care Environmental Sampler Name Role Phone Diana Chavarria Primary Care Provider [phone] Allergies No known active allergies Medications Metoprolol Succinate 100 MG capsule extended-release 24 hour sprinkle 05/08/2000 Ac tive VITAMIN D PO Take 5,000 Units by mouth Daily. Active Active Problems Problem Noted Date Diagnosed Date Family history of breast cancer 05/14/2023 Overview (05/14/2023): Sister diagnosed at 35, Maternal Aunt diagnosed at 32 Sister's genetic testing was negative (2017) Malignant melanoma of torso excluding breast 08/2023 Overview (05/14/2023): back Family History Medical History Relation Name Comments Breast cancer Maternal Aunt Celina diggs Ariane Melanoma Mother Sahara Black Breast cancer Sister Darrick dan Relation Name Status Comments Maternal Aunt Celina diggs Ariane Mother Sahara Sister Darrick dan Social History Tobacco Use Types Packs/Day Years Used Date Smoking Tobacco: Some Days Cigarettes 0.5 40 Smokeless Tobacco: Never Tobacco Cessation:Ready to Q uit: Not Asked; Counseling Given: Not Answered Alcohol Use Standard Drinks/Week Comments Never 0 (1 standard drink = 0.6 oz pur e alcohol) Abuse Screen Answer Date Recorded Unsafe at Home or Work/School Not on file Feels Threatened by Someone? Not on file 07/2023 Does Anyone Keep You from Co ntacting Others or Doint Things Outside the Home? Not on file 08/13/2023 Physical Sign of Abuse Present Not on file 1 Housing Stability Answer Date Recorded Current Living Arrangements Not on file 07/2023 Potentially Unsafe Housing Conditions Not on trev e 08/13/2023 Family and Community Support Answer Degar e Recorded Help with Day-to-Day Activities Not on file 08/13/2023 Lonely or Isolated Not on file 08/13/2023 Employment Answer Date Recorded Do you want help finding or keeping work or a sandro b? Not on file 08/13/2023 Disabilities Answer Date Recorded Concentrating, Remembering, or Making Decisions Difficulty Not on file 08/13/2023 Doing Errands Independently Difficulty Not on fi le 08/13/2023 Education Answer Date Recorded Help with school or training? Not on file Preferred Language Not on file 08/13/2023 Comments No Sex and Gender Information Value Date Recorded Sex Assigned at Not on file Legal Sex Female 10:24 AM EDT Gender Identity Not on file Sexual Orientation Not on file Last Filed Vital Signs Vital Sign Reading Time Taken Comments Blood Pressure 136/84 04/21/2024 9:19 AM EDT Pulse - - Temperature - - Respiratory Rate - - Oxygen Saturation - - Inhaled Oxygen Concentration - - Weight 58.9 kg (129 lb 14.4 oz) 04/21/2024 9:19 AM EDT Height 165.1 cm (5' 5 ) 04/21/2024 9:19 AM EDT Body Mass Index 21.62 04/21/2024 9:19 AM EDT Plan of Treatment Health Maintenance Due Date Last Done Comments Pneumococcal Vaccine 50+ (1 of 2 - PCV) 1986 TDAP/TD VACCINES (1 - Tdap) 1986 COLOGUARD 02/11/2012 COLON CANCER SCREENING 5 YEA R SIGMOIDOSCOPY 02/11/2012 CT COLONOGRAPHY 02/11/2012 FECAL OCCULT BLOOD TEST 02/11/2012 FIT Testing (1 year) 02/11/2012 ZOSTER VACCINE (1 of 2) 2017 ANNUAL PHYSICAL 05/14/2023 HEPATITIS C SCREENING 05/14/2023 Annual Gynecologic Pelvic and Breast Exam 05/15/2024 05/14/2023 COVID-19 Vaccine ( - season) 2024 MAMMOGRAM 04/27/2025 04/27/2023, 04/27/2023 INFLUENZA VACCINE 08/05/2025 COLONOSCOPY 05/07/2027 05/07/2017 COLORECTAL CANCER SCREENING 05/07/2027 Insurance [facility] PPO Care Teams Environmental Sampler Relationship Specialty Start Date End [place] [address] PCP - General Nurse Practitioner 05/14/23
--- OUTSIDE RECORDS SUMMARY | 2025-06-03 10:39 | XMS_ITS | Clinical Summary ---
Author Organization [facility] Address [address] [place] [address] Phone Care Team Providers Care Geophysical Data Technician Name Role Phone Unavailable Primary Care Provider Unavailabl e Social History Tobacco Use Types Packs/Day Years Used Date Smoking Tobacco: Never Assessed Comments Unknown Sex and Gender Information Value Date Recorded Sex Assigned at Not on file Legal Sex Female 10:24 AM EST Gender Identity Not on file Sexual Orientation Not on file Plan of Treatment Health Maintenance Due Date Last Done Comments Annual Wellness Exam 1970 DTaP/TDaP/Td (1 - Tdap) 1986 Hepatitis B Vaccine (1 of 3 - 19+ 3-dose series) 1986 Cervical Cancer Screening 02/11/1988 Pap Smear 02/11/1988 HPV/Pap Cotest 1997 Cologuard 02/11/2012 Colon Cancer Screening 02/11/2012 Colonoscopy 02/11/2012 FIT 02/11/2012 Sigmoidoscopy 02/11/2012 Virtual Colonography 02/11/2012 Pneumococcal Vaccine 50+ (1 of 1 - PCV) 2017 Zoster (1 of 2) 2017 COVID-19 Vaccine ( - 2023-2 5 season) 2024 Breast Cancer Screening 04/27/2025 04/27/2023 Influenza Vaccine (#1) 2025 Meningococcal B Vaccine Aged Out No l onger eligible based on patient's age to complete this topic Procedures Procedure Name Priority Date/Time Associated Diagnosis Comments MM MAMMO DIGITAL SONI SCREEN BILAT Routine 04/27/2023 11:28 AM EDT Encounter for screening mammogram for malignant neoplasm of breast from Last 3 Months or Most Recently Relevant to Health Maintenance Results * MM MAMMO DIGITAL SONI SCREEN BILAT (04/27/2023 11:28 AM EDT) Anatomical Region Laterality Modality Breast Bilateral Mammography 05/15/2023 3:15 PM EDT Impressions 05/15/2023 3:15 PM EDT Negative ([id number]) ~ RECOMMENDATION: Routine screening mammogram in 1 year. ~ DISCLAIMER * Any patient with a palpable abnormality, unexplained by breast imaging, should be managed on clinical basis by the attending physician. * Breast imaging has a false negative rate of 15%. * The patient was notified by mail of the results of this examination. *The patient's information was entered into a reminder system with a target due date for the next mammogram, in accordance with the [employer] and the Society of Breast Imaging recommendations. Narrative 05/15/2023 3:15 PM EDT Procedure:MM MAMMO DIGITAL SONI SCREEN BILAT ~ Reason for exam: screening, asymptomatic. Z12.31-Encounter for screening mammogram for malignant neoplasm of [id number] ~ MM MAMMO DIGITAL SONI SCREEN BILAT Bilateral CC and MLO view(s) were taken. The breast tissue is heterogeneously dense. This may lower the sensitivity of mammography. Prior study comparison: Compared with prior studies the most recent being outside bilateral screening mammography 05/22/2022 No mammographic evidence of malignancy. ~ Procedure Note Andriy Vincent MD - 05/15/2023 Procedure:MM MAMMO DIGITAL SONI SCREEN BILAT ~ Reason for exam: screening, asymptomatic. Z12.31-Encounter for screening mammogram for malignant neoplasm of [id number] ~ MM MAMMO DIGITAL SONI SCREEN BILAT Bilateral CC and MLO view(s) were taken. The breast tissue is heterogeneously dense. This may lower thesensitivity of mammography. Prior study comparison: Compared with prior studies the most recentbeing outside bilateral screening mammography 05/22/2022 No mammographic evidence of malignancy. ~ IMPRESSION: Negative ([id number]) ~ RECOMMENDATION: Routine screening mammogram in 1 year. ~ DISCLAIMER * Any patient with a palpable abnormality, unexplained by breast imaging, should be managed on clinical basis by the attending physician. * Breast imaging has a false negative rate of 15%. * The patient was notified by mail of the results of this examination. *The patient's information was entered into a reminder system with atarget due date for the next mammogram, in accordance with the [employer] and the Society of Breast Imaging recommendations. us Not In Epic Provider IMG MAMMOGRAPHY ORDERABLES Final Result from Last 3 Months or Most Recently Relevant to Health Maintenance
== END 2025-06-03 23:59 | disposition home or self-care (01) ==
LOC: LAB 10:37
PROVIDERS: PCP Nurse Practitioner Family; Visit Provider Specialist
DX: D17.9 Benign lipomatous neoplasm, unspecified (principal); R20.0 Anesthesia of skin; R20.2 Paresthesia of skin; Z85.9 Personal history of malignant neoplasm, unspecified
CPT/HCPCS: 36415; 82164; 85651; 87476

== ENCOUNTER 2025-10-19 08:00 | Outpatient (CLI) | payer BC, SELFPAY ==
--- OUTSIDE RECORDS SUMMARY | 2025-02-07 16:30 | XMS_ITS ---
Author Organization [facility] Address [address] [place] [address] Care Team Providers Care Steel Heater Name Role Phone Aubrey Lugo Primary Care Provider [phone] Migration, Provider Unavailable Unavailable Allergies Allergen (clinical drug ingredient) Drug/Non Drug Allergy documented on EMR Reaction Allergy Type Onset Date Status LEVAQUIN (uncoded) rash Allergy A ctive OMNICEF (uncoded) swelling/rash Allergy Active lubiprostone Amitiza stomach upset Drug Allergy Active REASON FOR VISIT [facility] To [facility] Conversion Encounter Medications Medication SIG (Take, Route, Frequency, Duration) Notes Start Date End Date Status Cetirizine HCl 10 MG 1 tab(s) orally onc e a day; Duration: 30 day(s) 03/10/2020 Active busPIRone HCl 5 MG 1 tab(s) orally 2 ti mes a day; Duration: 30 day(s) 05/05/2022 Active Metoprolol Tartrate 100 MG 1 tab(s) orally 2 times a day; Duration: 30 days Active Vitamin D3 50 MCG (1999 UT) 1 tab(s) orally once a day; Duration: 30 day(s) 08/27/2019 Active Flonase Allergy Relief 50 MCG/ACT 1 spray(s) intranasally once a day; Duration: 30 day(s) Active Encounters Encounter Location Date Provider Diagnosis [facility] [address] [place] [address] 02/07/2025 Provider Migration Left upper quadrant pain R10.12 and Mitral valve prolapse I34.1 Assessments Encounter Date Diagnosis (ICD Code) Assessment Notes Treatment Notes Treatment Clinical Notes Section Notes 02/07/2025 Left upper quadrant pain (ICD-10 - R10.12) 02/07/2025 Mitral valve prolapse (ICD-10 - I34.1) Plan Of Treatment Medication Medication Name Sig Start Date Stop Date Notes busPIRone HCl 5 MG 1 tab(s) orally 2 ti mes a day; Duration: 30 day(s) 05/05/2022 Metoprolol Tartrate 100 MG 1 tab(s) oral ly 2 times a day; Duration: 30 days Progress Notes * Castro SIMSieDOB:[birth year] (60 yo F)Acc No.[id number]:02/07/2025 Patient: Marleni LLOYD Provider: Teja merchant Migration :1965 A ge:59 Y S ex:Female Date:02/07/2025 Address:[address] [place], [place] [id number] Pcp:Aubrey Lugo Subjective: * Chief Complaints: * 1 . [facility] Encounter. * Medical History: * Medications: T aking Vitamin D3 50 MCG (1999) Tablet 1 tab(s) orally once a day , Taking Flonase Allergy Relief 50 MCG/ACT Suspension 1 spray(s) intranasally once a day , Taking Cetirizine HCl 10 MG Tablet 1 tab(s) orally once a day * Allergies: L EVAQUIN: rash - Contraindication, Amitiza: stomach upset - Side Effects, OMNICEF: swelling/rash - Allergy. Objective: * Vitals: Assessment: * Assessment: 1. L eft upper quadrant pain - R10.12 (Primary) 2 . M itral valve prolapse - I34.1 Plan: * Treatment: 2. M itral valve prolapse Refill Metoprolol Tartrate Tablet, 100 MG, 1 tab(s), orally, 2 times a day, 30 days, 60 Tablet, Refills 5. * * Electronic signature of Prov ider Migration on 10/19/2025 at 08:07 AM EST Sign off status: Pending * Provider: Teja merchant Migration Date: 0 02/07/2025 Generated for Jackson robison/Marina/Garrett on: 1 12/20/2024 08:07 AM EST
--- OUTSIDE RECORDS SUMMARY | 2025-10-19 08:07 | XMS_ITS | Clinical Summary ---
Author Organization [facility] Address [address] [place] [address] Phone Care Team Providers Care Presales Engineer Name Role Phone Unavailable Primary Care Provider [...] PCV) 2017 Zoster (1 of 2) 2017 Breast Cancer Screening 04/27/2025 04/27/2023 COVID-19 Vaccine (1 - 2024-2 6 season) 2025 Influenza Vaccine (#1) 2025 Meningococcal B Vaccine [...] Region Laterality Modality Breast Bilateral Mammography 05/15/2023 3:1 5 PM EDT Impressions 05/15/2023 3:15 PM EDT Negative ([id number]) ~ RECOMMENDATION: Routine screening mammogram in 1 [...] the next mammogram, in accordance with the [employer] and the Society of Breast Imaging recommendations. Narrative 05/15/2023 3:15 PM EDT Procedure:MM MAMMO DIGITAL SONI SCREEN BILAT ~ Reason for exam: screening, asymptomatic. Z12.31-Encounter for screening mammogram for malignant neoplasm of [id number]-[id number] ~ MM MAMMO DIGITAL SONI SCREEN BILAT [...] for screening mammogram for malignant neoplasm of [id number]-LYC-19-CM ~ MM MAMMO DIGITAL SONI SCREEN BILAT Bilateral CC and MLO view(s) were taken. The breast tissue is heterogeneously dense. This may lower thesensitivity of mammography. Prior study comparison: Compared with prior studies the most recentbeing outside bilateral screening mammography 05/22/2022 No mammographic evidence of malignancy. ~ IMPRESSION: Negative ([id number]-Cwacshpt-0) ~ RECOMMENDATION: Routine screening mammogram in 1 [...] the next mammogram, in accordance with the [employer] and the Society of Breast Imaging recommendations. us Not In Epic Provider IMG MAMMOGRAPHY ORDERABLES Final Result from Last 3 Months or Most Recently Relevant to Health Maintenance
--- OUTSIDE RECORDS SUMMARY | 2025-10-19 08:08 | XMS_ITS | Patient Health Record ---
Author Organization [facility] Address [address] [facility] [address] [place] [address] Care Team Providers Care Hypoid Gear Tester Name Role Phone Aubrey Lugo Primary Care Provider [phone] Migration, Provider Unavailable Unavailable Allergies Allergen (clinical drug ingredient) Drug/Non Drug Allergy documented on EMR Reaction Allergy Type Onset Date Status LEVAQUIN (uncoded) rash Allergy A ctive OMNICEF (uncoded) swelling/rash Allergy Active lubiprostone Amitiza stomach upset Drug Allergy Active Medications Medication SIG (Take, Route, Frequency, Duration) [...] once a day; Duration: 30 day(s) Active Problems Problem Type SNOMED Code ICD Code Onset Dates Problem Status W/U Status Risk Notes Problem Psychophysiologic insomnia (342030842) Psychophysiologic insomnia (F51.04) Active confirmed Problem Wheezing (82223976) Wheezing (R06.2) Active con firmed Problem Tobacco use (901198594) Tobacco use (Z72.0) Active confirmed Problem Vitamin D deficiency (39957317) Vitamin D deficiency (E55.9) Active confirmed Problem Seasonal allergy (559932898) Seasonal allergies (J30.2) Active confirmed Problem Thyroid nodule (055449077) Thyroid nodule (E04.1) Active confirmed Problem Decrease in appetite (finding) (05651567) Decreased appetite (R63.0) Active confirmed Problem Abnormal mammogram (256575330) Abnormal mammogram (R92.8) Active confirmed Problem Mitral valve prolapse (459469301) Mitral valve prolapse (I34.1) Active confirmed Problem Sciatica (17680695) Left sided s ciatica (M54.32) Active confirmed Problem History of nephrolithiasis (310477843) History of nephrolithiasis (Z87.442) Active confirmed Problem Solitary nodule of lung (207801894) Lung nodule (R91.1) Active confirmed Problem Joint pain (47968049) Arthralgia of multiple sites (M25.50) Active confirmed Problem History of peptic ulcer (517846591) History of peptic ulcer disease (Z87.11) Active confirmed Problem Globus sensation (667940495) Globus sensation (F45.8) Active confirmed Problem Mixed hyperlipidemia (153610005) Mixed dyslipidemia (E78.2) Active confirmed Problem Difficulty swallowing solids (304653342) Difficulty swallowing solids (R13.10) Active confirmed Problem 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) Celiac artery stenosis (I77.4) Active confirmed Encounters Encounter Location Date Provider Diagnosis [facility] [address] [facility] [address] [place] [address] 02/07/2025 Provider Migration Left upper quadrant pain R10.12 and Mitral valve prolapse I34.1 Assessments Encounter Date Diagnosis (ICD Code) Assessment Notes Treatment Notes Treatment Clinical Notes Section Notes 02/07/2025 Left upper quadrant pain (ICD-10 - R10.12) 02/07/2025 Mitral valve prolapse (ICD-10 - I34.1) Plan Of Treatment Pending Test Test Name Order Date N-Stool WBC 08/24/2011 Urinalysis 01/10/2013 Urinalysis 06/09/2015 N-TSH (Thyroid Stimulating Hormone) 02/04 N-Stool C Difficile 08/24/2011 N-Stool Guaiac(Occult Blood) 08/24/2011 N-Stool O&P 08/24/2011 EEG 02/25/2007 N-CMP 02/25/2007 CTA : Lower Extremity 06/10/2014 EKG : In House 02/25/2007 EKG : In House 10/01/2007 Upper GI series 09/01/2010 Small Bowel Follow Through 09/01/2010 Echocardiogram 03/23/2011 Holter Monitor, 24 Hour 02/25/2007 N-cbc 02/25/2007 Physical Therapy 10/13/2020 CT Scan : Abdomen and Pelvis, with and w ithout contrast 12/12/2017 N-CBC with diff 08/24/2011 H-CBC with AUTO DIFF 07/03/2012 H-URINE CULTURE 07/03/2012 H-CMP 07/03/2012 H-AMYLASE 07/03/2012 H-LIPASE 07/03/2012 H-URINALYSIS 07/03/2012 C-CMP 01/12/2021 C-FREE T4 10/03/2018 C-VITAMIN D, 1,25-DIHYDROXY 01/09/2017 N-Stool culture with sensitivity 011 Rapid Flu, A 08/20/2009 Rapid Flu, B 08/20/2009 M-Complete Blood Count Auto Diff 021 M-Comprehensive Metabolic Panel 03/03/20 M-Lipase 03/03/2021 M-Vitamin B12 09/16/2021 M-Vitamin D 25 Hydroxy 09/16/2021 M-Hepatitis Panel (4) 03/03/2021 Amylase 04/25/2022 CBC With Platelet And Differential 04/25 Comprehensive Metabolic Panel (CMP) 04/06 Lipase 04/25/2022 Insurance Providers Payer Name Payer Address Payer Phone Subscriber Number Group Number Insured Name Patient Relationship to Insured Coverage Start Date Coverage End Date [facility] [address] [place] [address] [id number] Marleni Sims Self - patient is the insured Medications Administered Medication Instructions Date of Administration Dosage Notes Ceftriaxone 500 10/15/2013 500 mg Ceftriaxone 500 03/16/2014 1000 mg Ceftriaxone 500 03/23/2015 500 Kenalog 10/15/2013 1 Kenalog 03/16/2014 1 Kenalog 03/23/2015 1 Kenalog 06/01/2015 1 mL Kenalog 09/10/2015 1 mL Kenalog 10/04/2016 1 mL Medical (General) History Medical History History ICD Code mitral valve prolapse, grade 2 as of 201 1 hormone replacement therapy failed cardiac stress test fall 2011-nor mal left heart cath after that. Seasonal allergies kidney stones Tobacco Abuse Normal ECHO (with exception of MVP) and cardiac Stress 12/21 IBS-D Colonoscopy and EGD 2005 Colonoscopy in 2015 with no polyps - int ernal hemorrhoids noted GERD and Hiatal hernia EGD with reactive gastritis and esophagi tis 01/2019 Thyroid nodules Lung nodule Celiac artery stenosis Surgical History Surgery Date(Month/Year) hysterectomy cataracts removed right ankle colon resection Hospitalization History Reason Date(Month/Year) above surgeries kidney stones/[facility] and [place] 09/2020
--- OUTSIDE RECORDS SUMMARY | 2025-10-19 08:08 | XMS_ITS | Clinical Summary ---
Author Organization [facility] Address [address] [place] [id number] Care Team Providers Care Stoper Name Role Phone Diana Chavarria Primary Care Provider [phone] Allergies No known active allergies Medications Metoprolol [...] e 08/13/2023 Family and Community Support Answer Edgar e Recorded Help with Day-to-Day Activities Not [...] Gynecologic Pelvic and Breast Exam 05/15/2024 05/14/2023 MAMMOGRAM 04/27/2025 04/27/2023, 04/27/2023 INFLUENZA VACCINE 06/05/2025 COLONOSCOPY 05/07/2027 05/07/2017 COLORECTAL CANCER SCREENING 05/07/2027 Insurance [facility] PPO Member Subscriber Plan / Payer (Ef fective 2022-Present) Name:Marleni Sims Member ID:[id number] Relation to Subscriber:Self Name:Marleni Sims Subscriber ID:[id number] Payer ID:[id number] (NAIC) Type:Not on file Address: [facility] [address] [place] [id number] Care Teams Stoper Relationship Specialty Start Date End Date Diana Chavarria [address] [place] [address] PCP - General Nurse Practitioner 05/14/23
--- NOTE | 2025-10-19 08:30 | MM_ITS ---
PROCEDURE INFORMATION: Exam: MG Bilateral Screening 3D Mammography Exam date and time: 10/19/2025 8:26 AM Age: 60 years old Clinical indication: Screening examination TECHNIQUE: Imaging protocol: Bilateral Screening tomosynthesis and 2D mammography including computer-aided detection (CAD) when performed. COMPARISON: MG MM DIG SCREENING MAMM BI W/CAD 09/09/2024 2:19 PM FINDINGS: MAMMOGRAPHY: Breast composition: There are scattered areas of fibroglandular density. Mass: None. Architectural distortion: None. Calcifications: No suspicious calcifications. Asymmetric density: None. Skin thickening: None. Axillary adenopathy: None. IMPRESSION: No mammographic evidence of malignancy. Annual screening is recommended unless otherwise clinically indicated. ASSESSMENT: BI-RADS Category 1: Negative.
== END 2025-10-19 23:59 | disposition home or self-care (01) ==
LOC: RAD 08:01
PROVIDERS: PCP Nurse Practitioner Family; Visit Provider Family Medicine
DX: Z12.31 Encounter for screening mammogram for malignant neoplasm of breast (principal); R92.323 Mammographic fibroglandular density, bilateral breasts
CPT/HCPCS: 77063; 77067